=== PATIENT | male | born 1975 | race Caucasian/White ===

== ENCOUNTER → 2023-06-08 10:23 | Outpatient (CLI) | payer OTHER, SELFPAY ==
--- NOTE | 2023-06-08 10:39 | ECG_ITS ---
APPROVED REPORT Exam: Resting ECG HR:84 bpm ECG Measurements Heart Rate 84 AXES WI 161 P 40 QRSd 102 QRS 26 QT 350 T 83 QTc 392 Conclusion SINUS RHYTHM NONSPECIFIC ST & T-WAVE ABNORMALITY BORDERLINE ECG UNCONFIRMED REPORT Electronically signed by : Ochoa Ribeiro MD 06/08/2023 17:32:51
--- NOTE | 2023-06-08 10:48 | XR_ITS ---
FINAL REPORT TECHNIQUE: Chest PA & Lateral CLINICAL HISTORY: pre-op exam for heel cough COMPARISON: None FINDINGS: 2 views of the chest were performed. The heart size is normal. Sternotomy wires are present. There is no acute cardiopulmonary process. There are no pleural effusions. There is no pneumothorax. The bony thorax appears intact. IMPRESSION: No acute cardiopulmonary process. Reviewed, Interpreted and Dictated by Moses Brandt MD Transcribed by Kait Reynoso Authenticated and [facility]
--- NOTE | 2023-06-08 10:48 | XR_ITS ---
FINAL REPORT CLINICAL HISTORY: Left heel pain COMPARISON: None FINDINGS: LEFT FOOT Three views of the left foot demonstrate no acute fracture or dislocation. The visualized joint spaces are normally aligned. 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 The soft tissues are unremarkable. IMPRESSION: No acute bony abnormality. Reviewed, Interpreted and Dictated by Moses Brandt MD Transcribed by Kait Reynoso Authenticated and [facility]
[2023-06-08 11:03] LABS: Basophils % 0.3 % (0.1-2.0); Eosinophils # 0.1 K/mm3 (0.0-0.4); Eosinophils % 0.7 % (0.1-12.0); Hematocrit 48.8 % (42.0-52.0); Hemoglobin 16.7 g/dL (14.1-18.0); Lymphocytes # 1.9 K/mm3 (0.7-4.5); Lymphocytes % 14.2 % (10-50); Mean Corpuscular HGB Conc 34.3 g/dL (31.8-35.4); Mean Corpuscular Hemoglobin 32.4 pg (27.0-31.2); Mean Corpuscular Volume 94.3 fl (80-94); Mean Platelet Volume 8.8 fl (7.4-10.4); Monocytes # 0.6 K/mm3 (0.1-1.0); Monocytes % 4.6 % (1.7-9.3); Neutrophils # 10.5 K/mm3 (1.8-7.8); Neutrophils % 80.2 % (37.0-80.0); Platelet Count 185 K/mm3 (142-424); Red Blood Count 5.17 M/mm3 (4.60-6.20); Red Cell Distribution Width 14.3 % (11.5-17.5); White Blood Count 13.1 K/mm3 (4.8-10.8)
[2023-06-08 12:02] LABS: Chloride 104 mmol/L (98-107); Potassium 4.4 mmoL/L (3.5-5.1); Sodium 141 mmol/L (136-145)
[2023-06-08 12:05] LABS: Alanine Aminotransferase 37 U/L (12-78); Albumin Level 4.6 g/dl (3.5-5.0); Albumin/Globulin Ratio 1.6 (1.1-1.8); Alkaline Phosphatase 103 U/L (38-126); Anion Gap 13.4 mEq/L (5-15); Aspartate Amino Transferase 35 U/L (17-59); Bilirubin,Total 0.6 mg/dl (0.2-1.3); Blood Urea Nitrogen 21 mg/dl (9-20); Calcium 8.8 mg/dl (8.4-10.2); Carbon Dioxide 28 mmol/L (22.0-30.0); Estimated Glomerular Filt Rate 71 ml/min (>60); GFR (African American) 86 ML/MIN (>60); Globulin 2.8 g/dL (1.3-3.2); Glucose 96 mg/dl (74-100); Total Protein,Serum 7.4 g/dl (6.3-8.2)
== END ==
PROVIDERS: Visit Provider Podiatrist
DX: Z01.818 Encounter for other preprocedural examination (principal); M79.672 Pain in left foot
CPT/HCPCS: 36415; 71046; 73630; 80053; 85025; 93005

== ENCOUNTER 2023-07-08 07:36 | Day surgery (SDC) | payer OTHER, SELFPAY ==
[2023-07-07 09:15] VITALS: BMI 42.5
[2023-07-08] VITALS (10 sets, daily range): BP systolic 125–154; BP diastolic 54–93; PULSE 74–86; RESP 14–18; TEMP 36.2–36.8; O2SAT 93–97
[2023-07-08] MEDS: LACTATED RINGERS 1000ML 1,000 ML 25 ML IV (08:03)
--- NOTE | 2023-07-08 10:09 | EXP.ANES.I ---
[facility] Anesthesia Record Part I Anesthesia Record I Intake, IV Amount: 1,550 Hydration: Adequate Estimated blood loss (mL): 25 Urine output (mL): 1 Blood Products used (#): none Blood Pressure: 125/69 SaO2: 94 Pulse Rate: 85 Airway Patency: Patent Respiratory Rate: 14 Temperature: 97.6 F Patient is:: Drowsy, Nasal O2 (4L/min to Left NPO), Oral/Nasal airway (#9.0 oral airway w/Left nare 34Fr NPO) and Stable Stable to PACU at:: 10:11
--- NOTE | 2023-07-08 10:39 | EXP.ANES.CKL ---
[facility] Disclaimer: The information contained in this section may have been updated after the patient was seen, as this information can be updated by other users. Medical History Kidney donor Surgical History H/O knee surgery History of open heart surgery Family History Grandmother Cancer Grandfather Cancer Mother Coronary artery disease Father Coronary artery disease Social History Smoking Status: Never smoker alcohol intake: never substance use type: denies use current occupational status: employed Travel in the last 8 weeks: None [facility] Anesthesia Checklist Patient Identification Patient Identification: Arm Band, Family and Verbal (Name & ) Structural Data Admitted From: Home Planned Operative Procedure/s: Left achilles repari w/graft jacket & heel spur resection Consent for Planned Operative Procedure(s) Verified: Yes Verified Documents: Surgical Consent and History and Physical NPO Status Verified Time NPO: 23:00 Chart Verification Results Verified: CBC, BMP, ECG and Chest Xray Additional verifications Patient : No Anesthesia Reactions: No Hx Blood Transfusions: No Blood Transfusion Reaction: No Cardiovascular Assessment Heart Sounds: S1 & S2 Pulse Rhythm: Irregular Peripheral Edema: No Airway Assessment Mallampati Score:: Class II C-Spine Mobility Assessed: Yes (FROM) TMJ Mobility Assessed: Yes Dentition: Good Dentition (Nothing loose per pt.) Neurological Assessment Level of Consciousness: Awake, Alert, Appropriate and Follows Commands Hx Seizures: No Numbness or tingling in extremities: No Anesthesia Plan Anesthesia Risk discussed: Yes Anesthesia Plan: Verified ASA Class: III Anesthesia Type: General
--- NOTE | 2023-07-08 13:04 | EXP.ANES.I ---
[facility] Anesthesia Record Part I Anesthesia Record I Intake, IV Amount: 800 Hydration: Adequate Estimated blood loss (mL): 25 Urine output (mL): 0 Blood Products used (#): none Blood Pressure: 139/55 SaO2: 93 Pulse Rate: 84 Airway Patency: Patent (Left nare #34Fr NPO) Respiratory Rate: 18 Temperature: 98.2 F Patient is:: Awake (Talking), Oral/Nasal airway (Left nare #34Fr NPO) and Stable Stable to PACU at:: 13:00
[2023-07-08] MEDS: MORPHINE 2MG/ML SYRINGE 2 MG IV (13:24)
--- NOTE | 2023-07-08 18:22 | EXP.OP.NOTE ---
Date of procedure: 07/08/23 Pre-op Diagnosis:: Achilles spurring; tendinitis; Jennifer's deformity; taut achilles Left side. Post-op Diagnosis:: Same Procedure performed:: Achilles tendon lengthening with graft placement Apligraf; and resection Achilles spur and Jennifer's deformity Left side. Surgeon:: Og Huggins DPM HEAD CUSTODIAN:: Other Anesthesia: GETA Estimated blood loss (mL): 3 Operative findings:: Expected taut achilles; exuberant spurring and very enlarged Jennifer's Operative note:: Patient was seen in preop holding; discussed condition with patient and family. Decision to proceed with surgery; efffected foot was signed and consent was reviewed. All questions were answered. Patient been wheeled to the operating room on the [facility]. Anesthesia performed general anesthesia and intubated the patient and then the patient was situated in a prone position on the operating room table. A thigh tourniquet was applied. The foot and ankle are scrubbed and prepped in the usual use aseptic manner. Timeout is performed in the room with all present in agreement. An Esmarch bandage used to exsanguinate the patient's foot and ankle and thigh tourniquet was inflated to 300 mmHg. Attention was directed to the posterior aspect of the patient's Achilles and a linear incision is made through the skin all the way to the very enlarged Achilles spur and Jennifer's level. Dissection was then carried down through subcutaneous tissues at the deep fascia and the Achilles tendon was exposed. At this point dissected the Achilles tendon freed from the very large exostosis it from that and identifying also very prominent Jennifer's deformity. Using sagittal bone saw the exuberant spurring and Jennifer's deformity were resected and remodeled with bone saw and rongeurs. At this point a Z-type tenotomy was performed on the Achilles tendon, to promote its lengthening, extending the tendon in length by 1.5cm; secured with 2-0 suture. After this was done, I prepped the calcaneus with 4 [place] tendon anchors. Tied down the Achilles and was well secured onto the posterior calcaneus. Application of Graft jacket: A 2 x 2 graft jacket was then wrapped around the Achilles tendon at the Z-lengthening site and pad over the Achilles with 0 Vicryl and 2-0 Vicryl. The entire Achilles surgical lengthening section was completely enclosed with the graft, from proximal to the intact tendon/lower muscle level, to the distal tendon anchored to the calcaneus. Utilizing 2-0 and 3-0 Vicryl the peritenon and deep fascia was approximated in a running fashion. The area was rinsed with copious amounts of sterile normal saline. 2-0 Vicryl was used to close the peritenon and deeper fascial structures. I also then used 3-0 Vicryl for subcutaneous closure. Suture closed the skin in layers with the 3-0 Vicryl and then the skin with 3-0 nylon in a combination of running suture as well as mattress suture technique. I dressed the surgical incision site with Xeroform gauze and well-padded with 4 x 4's and Jannet. I then applied a stockinette and well-padded with layers of soft roll or cast padding. Then applied a 4 inch wide posterior splint of Ortho-Glass. Secured this with an outer elastic bandage. Tourniquet was released from the thigh up to for prompt hyperemic response noted to all digits of the right foot. The patient was then positioned onto the gurney and extubated by anesthesia. He was then transferred to recovery with vital signs stable vascular status intact to his right foot. He will then be discharged to home per anesthesia criteria later this morning. Discussed the procedure with his after the surgery; and sent the patient home with Valium, Percocet, and Phenergan. Has a scheduled post operative appointment with me in one week at the office. Call if any problems arise sooner; or report to nearest ER. Use rolling knee scooter; and stay non weight bearing right side for upwards of 8 weeks; to be evaluated regularly in post operative course. Tourniquet time (min): 75 Condition: stable Disposition: PACU Complications:: negative
--- NOTE | 2023-07-09 11:40 | EXP.ANES.II ---
[facility] Anesthesia Record Part II Anesthesia Record Part II Discharge Time: 13:25 Destination: Surgical Day Care (OP Surgery) PACU nurse assessment reviewed?: Yes Patient Condition:: Good Anesthesia Complications:: None Swallowing reflex intact?: Yes Airway Patency: Patent Cyanosis?: No Blood Pressure: 154/93 SaO2: 97 Respiratory Rate: 18 Pulse Rate: 86 Temperature: 97.2 F Mental Status: Alert & Oriented Pain level:: 0 Nausea and/or vomitting:: None Intake, IV Amount: 0 Hydration: Adequate
[2023-07-09 11:41] VITALS: BP 154/93; PULSE 86; RESP 18; TEMP 36.2; O2SAT 97
== END 2023-07-08 14:00 | disposition home or self-care (01) ==
PROVIDERS: Visit Provider Podiatrist
PROC: (CPT 27652; principal; 2023-07-08 09:15)
DX: M77.32 Calcaneal spur, left foot (principal); M76.62 Achilles tendinitis, left leg; M79.672 Pain in left foot; M24.572 Contracture, left ankle
CPT/HCPCS: 27652; 28118; C1713; J2405; Q4107

== ENCOUNTER 2023-08-26 06:05 | Day surgery (SDC) | payer OTHER, SELFPAY ==
[2023-08-26] VITALS (11 sets, daily range): BP systolic 127–170; BP diastolic 71–104; PULSE 85–93; RESP 12–18; TEMP 36.1–43; O2SAT 92–96; BMI 42.5
[2023-08-26] MEDS: LACTATED RINGERS 1000ML 1,000 ML 100 ML IV (06:21)
[2023-08-26 07:06] LABS: Basophils # 0.1 K/mm3 (0-0.2); Basophils % 0.7 % (0.1-2.0); Eosinophils # 0.2 K/mm3 (0.0-0.4); Eosinophils % 1.1 % (0.1-12.0); Hematocrit 49.2 % (42.0-52.0); Hemoglobin 16.4 g/dL (14.1-18.0); Lymphocytes # 2.4 K/mm3 (0.7-4.5); Lymphocytes % 18.8 % (10-50); Mean Corpuscular HGB Conc 33.3 g/dL (31.8-35.4); Mean Corpuscular Hemoglobin 31.8 pg (27.0-31.2); Mean Corpuscular Volume 95.4 fl (80-94); Mean Platelet Volume 9.2 fl (7.4-10.4); Monocytes # 0.6 K/mm3 (0.1-1.0); Monocytes % 4.3 % (1.7-9.3); Neutrophils # 9.8 K/mm3 (1.8-7.8); Neutrophils % 75.1 % (37.0-80.0); Platelet Count 214 K/mm3 (142-424); Red Blood Count 5.16 M/mm3 (4.60-6.20); Red Cell Distribution Width 14.6 % (11.5-17.5)
[2023-08-26 07:17] LABS: Anion Gap 12.5 mEq/L (5-15); Blood Urea Nitrogen 16 mg/dl (9-20); Carbon Dioxide 27 mmol/L (22.0-30.0); Chloride 102 mmol/L (98-107); Creatinine Clearance Estimated 86 mL/min (50-200); Estimated Glomerular Filt Rate 79 ml/min (>60); GFR (African American) 96 ML/MIN (>60); Glucose 124 mg/dl (74-100); Potassium 3.5 mmoL/L (3.5-5.1); Sodium 138 mmol/L (136-145)
[2023-08-26] MEDS: AMPICILLIN SODIUM/SULBACTAM 3 GM in 0.9 % SODIUM CHLORIDE 100 ML IV (07:29)
[2023-08-26] MEDS: GENTAMICIN 80 MG/2 ML VIAL (08:06)
--- NOTE | 2023-08-26 08:08 | P.PNANES_ITS ---
[facility] Disclaimer: The information contained in this section may have been updated after the patient was seen, as this information can be updated by other users. Medical History Kidney donor Surgical History H/O knee surgery History of open heart surgery Family History Grandmother Cancer Grandfather Cancer Mother Coronary artery disease Father Coronary artery disease Social History Smoking Status: Never smoker alcohol intake: current substance use type: denies use current occupational status: employed Travel in the last 8 weeks: None [facility] Anesthesia Checklist Patient Identification Patient Identification: Verbal (Name & ) Structural Data Admitted From: Home Planned Operative Procedure/s: excision skin graft w wound vac Consent for Planned Operative Procedure(s) Verified: Yes NPO Status Verified Time NPO: 00:00 Additional verifications Anesthesia Reactions: No Hx Blood Transfusions: No Blood Transfusion Reaction: No Airway Assessment Mallampati Score:: Class IV C-Spine Mobility Assessed: Yes TMJ Mobility Assessed: Yes Dentition: Poor Dentition Neurological Assessment Level of Consciousness: Awake, Alert and Appropriate Anesthesia Plan Anesthesia Risk discussed: Yes Anesthesia Plan: Verified ASA Class: III Anesthesia Type: General w/block Preoperative Comments Pre-Operative Comments: pop block exp to pt incll risks pt agrees to proceed
[2023-08-26] MEDS: VANCOMYCIN 1000MG VIAL 1000 MG (08:34)
--- NOTE | 2023-08-26 09:16 | EXP.ANES.I ---
[facility] Anesthesia Record Part I Anesthesia Record I Intake, IV Amount: 1,500 Hydration: Adequate Estimated blood loss (mL): 0 Urine output (mL): 0 Blood Pressure: 170/104 SaO2: 92 Pulse Rate: 93 Airway Patency: Patent Respiratory Rate: 12 Temperature: 97.5 F Patient is:: Awake and Stable Stable to PACU at:: 09:15
--- NOTE | 2023-08-26 09:31 | EXP.OP.NOTE ---
Date of procedure: 08/26/23 Pre-op Diagnosis:: Achilles wound dehiscence; graft rejection Post-op Diagnosis:: Same Procedure performed:: Achilles wound debridement with cultures and specimens for pathology; removed necrotic tissue and graft; Gentamicin flush irrigation pulse lavage; repaired achilles tendon with surgery and 0 silk; Vancomycin beads; applied negative wound system. Dressed with gauze, Kerlix, outer elastic bandage. Surgeon:: Og Huggins DPM ORDNANCE ARTIFICER:: Morgan Lawler Anesthesia: GETA Estimated blood loss (mL): 5 Operative findings:: necrotic graft left achilles wound. Operative note:: Patient seen in the preop holding area. Discussed with the patient the planned procedure(s). Reviewed Consent; and confirmed the plan of care with the patient. Opportunity was provided to ask questions and concerns. They understand that another surgery may also be necessary, based on his healing. Signed the surgical site with marking pen. Patient was wheeled to the operating room per staff and anesthesia. Anesthesia blocked the patient/began anesthesia on patient. Foot and lower leg was scrubbed, prepped, and draped today. [place] bandage used to exsanguinate foot, ankle, lower leg; and secured midcalf. Attention directed to the Achilles wound. Ellipsed the edges of the wound from the most proximal level of prior incision to distal heel incision. Scalpel, scissors, currette used to excise necrotic tendon edges, failed graft, and all necrotic tissue in deep wound bed. Sent for pathology and cultures. Achilles had fibers connected from entire length of tendon, about 20% of original tendon attachment. The surgical lengthened Achilles site was then debrided at both ends. Gentamicin was added to saline for pulse lavage. *Clean wound was noted; Achilles was then biopsied for culture deep tissues. Re-anastomosed the Achilles tendon with 0.0 Silk and noted to be secure. Vancomycin beads (Synchris) were implanted around the Achilles tendon. Reapproximated the deeper subcutaneous tissues with 2-0 Prolene; and skin reapproximated with 2-0 nylon. Wound edges were not fully reduced; and linear wound remains measuring length of incision 10cm x width 8mm x depth through tendon structures of 4cm. Released the esmarck touniquet. Applied Negative wound system to the Achilles wound; and suction was secure and working continuous pulse. Applied gauze, Kerlix, outer elastic bandage. Patient has appointment for Tuesday and in my office. Call if any questions or concerns; family and patient have my cell number. Tourniquet time (min): 0 Condition: stable Disposition: PACU Complications:: negative
--- NOTE | 2023-08-26 10:15 | SUR.PHASEII ---
1015 - Pt already has a rolling knee scooter and polar pack from prev surgery.
--- NOTE | 2023-08-26 14:28 | EXP.ANES.II ---
[facility] Anesthesia Record Part II Anesthesia Record Part II Discharge Time: 09:45 Destination: Surgical Day Care (OP Surgery) PACU nurse assessment reviewed?: Yes Patient Condition:: Good Anesthesia Complications:: None Swallowing reflex intact?: Yes Airway Patency: Patent Cyanosis?: No Blood Pressure: 140/90 SaO2: 94 Respiratory Rate: 15 Pulse Rate: 87 Temperature: 98.4 F Mental Status: Alert & Oriented Pain level:: 0 Nausea and/or vomitting:: None Intake, IV Amount: 0 Hydration: Adequate
== END 2023-08-26 10:15 | disposition home or self-care (01) ==
PROVIDERS: Visit Provider Podiatrist
PROC: (CPT 11043; principal; 2023-08-26 07:30)
DX: T85.613A Breakdown (mechanical) of artificial skin graft and decellularized allodermis, initial encounter (principal); T81.31XA Disruption of external operation (surgical) wound, not elsewhere classified, initial encounter
CPT/HCPCS: 11043; 11046; 80048; 85025; 87070; 87205; 96374; C1713; J2405; J3370

== ENCOUNTER 2023-10-06 18:00 | Outpatient (CLI) | payer OTHER, SELFPAY | END 2023-10-06 23:59 | LOC: LAB.DROPOF 10-07 08:52 | PROVIDERS: PCP Podiatrist; Visit Provider Podiatrist | DX: M25.572 Pain in left ankle and joints of left foot (principal); S91.002A Unspecified open wound, left ankle, initial encounter; B96.5 Pseudomonas (aeruginosa) (mallei) (pseudomallei) as the cause of diseases classified elsewhere | CPT/HCPCS: 87070; 87205 ==

== ENCOUNTER 2023-10-20 15:33 | Outpatient (CLI) | payer OTHER, SELFPAY ==
--- NOTE | 2023-10-20 15:34 | ECG_ITS ---
APPROVED REPORT Exam: Resting ECG HR:93 bpm ECG Measurements Heart Rate 93 AXES TN 155 P 29 QRSd 94 QRS -4 QT 332 T 123 QTc 383 Conclusion SINUS RHYTHM POSSIBLE LEFT ATRIAL ENLARGEMENT [-0.1mV P-WAVE IN V1/V2] ST DEVIATION AND MODERATE T-WAVE ABNORMALITY, with no changes from 2022 tracing ABNORMAL ECG UNCONFIRMED REPORT Electronically signed by : Ochoa Ribeiro MD 10/21/2023 15:53:38
--- NOTE | 2023-10-20 15:48 | XR_ITS ---
PROCEDURE INFORMATION: Exam: XR Left Ankle Exam date and time: 10/20/2023 4:08 PM Age: 48 years old Clinical indication: Other: Post retrocalc exostectomy TECHNIQUE: Imaging protocol: Radiologic exam of the left ankle. Views: 3 or more views. COMPARISON: CR XR FOOT WT BEARING LT 3V 06/08/2023 11:03 AM FINDINGS: Bones/joints: Recent surgery with resection of a portion of the posterosuperior calcaneal tuberosity. Patchy osteopenia compatible with disuse. Soft tissues: Normal. IMPRESSION: Postop left ankle.
--- NOTE | 2023-10-20 15:48 | XR_ITS ---
PROCEDURE INFORMATION: Exam: XR Chest Exam date and time: 10/20/2023 4:08 PM Age: 48 years old Clinical indication: Pre-operative exam; Cardiovascular screening and respiratory screening exam; Additional info: Preop testing TECHNIQUE: Imaging protocol: Radiologic exam of the chest. Views: 2 views. COMPARISON: CR XR CHEST 2V 06/08/2023 11:03 AM FINDINGS: Lungs: Unremarkable. No consolidation. Pleural spaces: Unremarkable. No pleural effusion. No pneumothorax. Heart/Mediastinum: Post open heart changes. Bones/joints: Unremarkable. IMPRESSION: Stable chest x-ray with no acute disease.
[2023-10-20 16:00] LABS: Basophils # 0.1 K/mm3 (0-0.2); Basophils % 0.7 % (0.1-2.0); Eosinophils # 0.2 K/mm3 (0.0-0.4); Eosinophils % 1.2 % (0.1-12.0); Hemoglobin 17.4 g/dL (14.1-18.0); Lymphocytes # 2.3 K/mm3 (0.7-4.5); Mean Corpuscular Hemoglobin 32.3 pg (27.0-31.2); Mean Platelet Volume 8.6 fl (7.4-10.4); Monocytes # 0.8 K/mm3 (0.1-1.0); Neutrophils # 9.3 K/mm3 (1.8-7.8); Neutrophils % 74.1 % (37.0-80.0); Platelet Count 218 K/mm3 (142-424); Red Blood Count 5.37 M/mm3 (4.60-6.20); Red Cell Distribution Width 15.1 % (11.5-17.5); White Blood Count 12.5 K/mm3 (4.8-10.8)
[2023-10-20 16:09] LABS: Hemoglobin A1C 5.3 % (4.0-6.0)
[2023-10-20 16:32] LABS: Erythrocyte Sedimentation Rate 5 mm/hr (0-15)
[2023-10-20 16:59] LABS: Alanine Aminotransferase 34 U/L (12-78); Albumin Level 4.6 g/dl (3.5-5.0); Albumin/Globulin Ratio 1.6 (1.1-1.8); Alkaline Phosphatase 99 U/L (38-126); Anion Gap 13.3 mEq/L (5-15); Aspartate Amino Transferase 30 U/L (17-59); Bilirubin,Total 0.8 mg/dl (0.2-1.3); Blood Urea Nitrogen 18 mg/dl (9-20); Calcium 9.6 mg/dl (8.4-10.2); Carbon Dioxide 27 mmol/L (22.0-30.0); Chloride 105 mmol/L (98-107); Estimated Glomerular Filt Rate 71 ml/min (>60); GFR (African American) 86 ML/MIN (>60); Globulin 2.9 g/dL (1.3-3.2); Glucose 114 mg/dl (74-100); Potassium 4.3 mmoL/L (3.5-5.1); Sodium 141 mmol/L (136-145); Total Protein,Serum 7.5 g/dl (6.3-8.2)
[2023-10-20 17:05] LABS: C-Reactive Protein 10.3 mg/L (0-4)
[2023-10-31 15:31] LABS: 1,25 Dihydroxy Vitamin D 19 pg/mL (.); 1,25-Dihydroxy, Vitamin D-2 <10 pg/mL (.); 1,25-Dihydroxy, Vitamin D-3 19 pg/mL (.)
== END 2023-10-20 23:59 | disposition home or self-care (01) ==
LOC: LAB 15:34
PROVIDERS: Visit Provider Podiatrist
DX: Z01.818 Encounter for other preprocedural examination (principal); M25.572 Pain in left ankle and joints of left foot; G89.29 Other chronic pain; M77.32 Calcaneal spur, left foot; S91.002S Unspecified open wound, left ankle, sequela; S96.90 Unspecified injury of unspecified muscle and tendon at ankle and foot level; T81.31XS Disruption of external operation (surgical) wound, not elsewhere classified, sequela
CPT/HCPCS: 36415; 71046; 73610; 80053; 82652; 83036; 85025; 85651; 86140; 87070; 87205; 93005

== ENCOUNTER 2023-10-28 07:24 | Outpatient (CLI) | payer OTHER, SELFPAY ==
--- NOTE | 2023-10-28 07:25 | MR_ITS ---
FINAL REPORT TECHNIQUE: Multiplanar MRI with and without contrast evaluating the left lower leg. CLINICAL HISTORY: Eval Achilles viability, partial tear, infection. ANKLE SURGERY JUN AND AUGUST. WOUND WILL NOT HEAL. COMPARISON: None FINDINGS: MRI LEFT LOWER LEG WITH AND WITHOUT CONTRAST: Multiplanar MR imaging was performed with and without intravenous contrast through the left lower leg in this patient with a clinical history of 2 ankle surgeries and a nonhealing wound. There is a large open wound extending into the distal Achilles tendon. Only thin remaining fibers present in the distal Achilles tendon are intact. This patient is considered to be at extremely high risk for a complete tear. There is enhancing tissue in the open wound, that may represent cellulitis or granulation tissue. No obvious abscess is visualized. There is increased T2 weighted signal in the medial and lateral gastrocnemius muscles, that may represent an infectious myositis. No evidence of abscess or osteomyelitis is identified. IMPRESSION: There is absence of the vast majority of the Achilles tendon fibers, with only a small remnant of the tendon intact. This places the patient at high risk for a complete rupture. Enhancing tissue in the open wound that may represent cellulitis or granulation tissue without evidence of focal abscess. Reviewed, Interpreted and Dictated by Cindy Schilling MD Transcribed by Bree Valadez Authenticated and [facility]
[2023-10-28] MEDS: GADOTERIDOL INJ 17ML SYRINGE 26 ML IV (09:35)
[2023-10-28] MEDS: SODIUM CHLORIDE 0.9% 10ML SYR (RAD ONLY) 10 ML IV (09:35)
== END 2023-10-28 23:59 | disposition home or self-care (01) ==
LOC: RAD 07:25
PROVIDERS: Visit Provider Podiatrist
DX: M25.572 Pain in left ankle and joints of left foot (principal); S91.002S Unspecified open wound, left ankle, sequela; S96.90 Unspecified injury of unspecified muscle and tendon at ankle and foot level; T81.31XS Disruption of external operation (surgical) wound, not elsewhere classified, sequela; Z22.39 Carrier of other specified bacterial diseases
CPT/HCPCS: 73720; A9576

== ENCOUNTER 2023-11-03 09:52 | Outpatient (CLI) | payer OTHER, SELFPAY ==
--- NOTE | 2023-11-03 09:56 | CA_ITS ---
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 251.0 (50-130 cm/s) AO Peak GR. 25.40 mmHg AO Mean GR. 13.80 (<5 mmHg) AO VTI 34.9 (18-25 cm) WOLFGANG (VTI) 2.07 (2.5-4.5 cm2) Mitral Valve MV E Max Justin. 59.0 (40-130 cm/s) MV A Velocity 77.0 (40-130 cm/s) E/A Ratio 0.76 MV PHT 52.0 ms Pulmonary Valve PV Peak Velocity 161.0 (50-150 cm/s) Tricuspid Valve TR P. Velocity 258.00 cm/s RAP Estimate 10.00 mmHg RVSP 36.60 mmHg Left Ventricle The left ventricle is normal size. The left ventricular systolic function is normal. The left ventricular ejection fraction is within the normal range. There is increased LV wall thickness. Proximal septal thickening is noted. There is normal LV segmental wall motion. The left ventricular diastolic function is normal. LVEF is 55%. Right Ventricle The right ventricle is normal size. The right ventricular systolic function is normal. Atria The left atrium size is normal. The right atrium size is normal. There is no Doppler evidence of interatrial shunt. Aortic Valve s/p subaortic membrane repair (1985). The aortic valve is mildly thickened. The excursion of the aortic valve leaflets not well-visualized due to technically difficult study. Peak velocity 2.7 m/s. Mean AV gradient 20 mmHg. Max AV gradient 28 mmHg. Distinction between mild AV stenosis versus recurrence of subaortic membrane cannot be conclusively made due to technically difficult study. Mild aortic regurgitation. Mitral Valve The mitral valve is normal in structure. No evidence of mitral valve stenosis. Mild mitral regurgitation. Tricuspid Valve The tricuspid valve leaflets are thin and pliable. Trace tricuspid regurgitation. There is insufficient TR jet to estimate RVSP. Pulmonic Valve The pulmonary valve is normal in structure. Trace pulmonic regurgitation. Great Vessels The aortic root is normal in size. The ascending aorta is not well-visualized. IVC is normal in size and collapses >50% with inspiration. Pericardium There is no pericardial effusion. Other Information Study Quality: Technically Difficult Conclusion Technically difficult study due to poor acoustic windows. Normal biventricular systolic function. Mild MR, mild AI. s/p subaortic membrane repair (1985). The aortic valve leaflet excursion is not well-visualized due to technically difficult study. Peak velocity 2.7 m/s. Mean AV gradient 20 mmHg. Max AV gradient 28 mmHg. In the setting of technically difficult study and elevated AV gradients with inability to visualize the AV leaflets, further evaluation with outpatient cardiac MRI (aortic valve protocol) is recommended to evaluate for recurrence of subaortic membrane. Electronically signed by : Cheli Berg MD 11/06/2023 00:56:50
== END 2023-11-03 23:59 | disposition home or self-care (01) ==
LOC: RT 09:56
PROVIDERS: Visit Provider Nurse Practitioner Family
DX: R94.31 Abnormal electrocardiogram [ECG] [EKG] (principal); Z01.810 Encounter for preprocedural cardiovascular examination; Z98.890 Other specified postprocedural states; Z86.79 Personal history of other diseases of the circulatory system; S91.002S Unspecified open wound, left ankle, sequela; S96.90 Unspecified injury of unspecified muscle and tendon at ankle and foot level
CPT/HCPCS: 93306

== ENCOUNTER 2023-11-09 08:18 | Inpatient (IN) | payer OTHER, SELFPAY ==
[2023-11-08 13:42] VITALS: BMI 42.5
[2023-11-09] VITALS (19 sets, daily range): BP systolic 115–167; BP diastolic 49–94; PULSE 81–95; RESP 16–20; TEMP 36.1–37.3; O2SAT 94–98; BMI 42.5
[2023-11-09] MEDS: LACTATED RINGERS 1000ML 1,000 ML 100 ML IV (07:54)
--- NOTE | 2023-11-09 08:56 | P.HPDS_ITS ---
General Admission date:: 11/09/23 *Admission Date: 11/09/23 *Chief complaint: Left achilles tendon tear *History of present illness: Patient is a 48-year-old obese male who presented for open wound of the left posterior ankle with exposed Achilles tendon. 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 Patient tried and failed conservative care prior to surgery. Since his surgery he has been immobilized in a fracture boot, nonweightbearing with a rolling knee scooter, RICE protocol, NSAIDs. Patient has also been having weekly wound debridements with wound VAC changes with Dr. Huggins. Due to the extensive nature of the wound and the complexity of the potential weakness of the Achilles tendon strength, patient was referred for second opinion for evaluation and surgical management. Patient underwent left revisional achilles surgery today. Plan for 23hrs observation for pain mgmt and medical mgmt due to abnormal EKG-overnight cardiac monitoring. [facility] Disclaimer: The information contained in this section may have been updated after the patient was seen, as this information can be updated by other users. Medical History Kidney donor Surgical History H/O knee surgery History of open heart surgery Family History Father Grandfather Grandmother Coronary artery disease Mother Father Cancer Grandmother Grandfather Social History Smoking Status: Never smoker alcohol intake: never substance use type: denies use current occupational status: employed Travel in the last 8 weeks: None Review of Systems Review of Systems Review of systems:: pertinent systems reviewed and negative unless documented below Constitutional Constitutional: Reports system reviewed and no additional complaints, except as documented and Reports weakness (LLE) Eyes Eyes: Reports system reviewed and no additional complaints, except as documented ENT Ears, Nose, Mouth, and Throat: Reports system reviewed and no additional complaints, except as documented *Cardiovascular Cardiovascular: Reports system reviewed and no additional complaints, except as documented *Respiratory Respiratory: Reports system reviewed and no additional complaints, except as documented *Gastrointestinal Gastrointestinal: Reports system reviewed and no additional complaints, except as documented *Genitourinary Genitourinary: Reports system reviewed and no additional complaints, except as documented *Musculoskeletal Musculoskeletal: Reports system reviewed and no additional complaints, except as documented, Reports joint swelling, Reports muscle weakness (LLE) and Reports radiating pain into limb Integumentary/Breasts Skin/Breast: Reports system reviewed and no additional complaints, except as documented *Neurologic Neurologic: Reports system reviewed and no additional complaints, except as documented and Reports weakness (LLE) Psychiatric Psychiatric: Reports system reviewed and no additional complaints, except as documented Exam Data for Last 24 hours Vital signs and Labs for Last 24 Hours: Temp Pulse Resp BP Pulse Ox O2 Del Method 97 F L 86 18 167/94 H 94 L Room Air 11/09/23 07:56 11/09/23 07:56 11/09/23 07:56 11/09/23 07:56 11/09/23 07:56 11/09/23 07:56 I & O for Last 24 hours: Intake & Output 11/06/23 11/07/23 11/08/23 11/09/23 11:59 11:59 11:59 11:59 Weight 280 lb Constitutional Constitutional: no acute distress and morbidly obese *Routine HEENT Exam Head: Present normocephalic Eye: Present EOMI ENT: Present mucous membranes moist *Routine Neck Exam Neck: Present supple *Routine Respiratory Exam Respiratory: Present normal respiratory effort and able to speak in complete sentences *Routine Cardiovascular Exam Cardiovascular: Present RRR *Routine Abdominal Exam Abdominal: Present soft *Routine Rectal Exam Rectal:: deferred *Routine Genitalia Exam Genitalia:: deferred *Routine Extremities Exam Extremities: Present edema and pulses intact *Routine Skin Exam Skin: Present intact Comments: Sutures are clean dry and intact to the posterior left ankle/leg. Some maceration to the distal incision secondary to bleeding. Graft intact to the distal wound with sutures in place. No new SOI noted. *Routine Neurological Exam Neurological: Present alert and oriented X3 Routine Psychiatric Exam Psychiatric: Present normal affect Detailed Lower Extremity Exam Hip: left: swelling, left: tenderness (posterior leg, achilles) and left: decreased ROM Meds Home Medications and Allergies Home Medications Medication Instructions Recorded Confirmed Type cyclobenzaprine 5 mg tablet 5 mg PO BID PRN muscle spasm #30 11/09/23 Rx tabs ibuprofen 800 mg tablet 800 mg PO Q8H PRN pain 30 days #90 11/09/23 Rx tabs ketorolac 10 mg tablet 10 mg PO Q6H PRN moderate pain 11/09/23 Rx (scale score 5-6) 5 days #20 tabs levofloxacin 750 mg tablet 750 mg PO DAILY 10 days #10 tabs 11/09/23 Rx ondansetron HCl 4 mg tablet 4 mg PO Q6H PRN nausea #30 tabs 11/09/23 Rx oxycodone-acetaminophen 10 mg-325 1 tab PO Q4-6H PRN severe pain 11/09/23 Rx mg tablet (scale score 7-10) 7 days #42 tabs cholecalciferol (vitamin D3) 1,250 1,250 mcg PO WEEKLY #14 caps 11/10/23 Rx mcg (50,000 unit) capsule gabapentin 300 mg capsule 300 mg PO TID PRN nerve pain 10 11/10/23 Rx days #30 caps New Prescriptions to Start Prescriptions: Allergies Allergy/AdvReac Type Severity Reaction Status Date / Time Sulfa (Sulfonamide AdvReac Intermediate Unknown Verified 11/09/23 07:52 Antibiotics) allergy reaction influenza virus vaccine AdvReac Unknown Verified 11/09/23 07:52 trivalent allergy reaction Hospital Course Hospital Course Hospital Course: Patient admitted for 23hr observation s/p left achilles reconstruction. Had previously uneventful postop course. No issues overnight. Had elevated WBC on labs likely post surgical with possible early atelectasis. Has incentive spirometer at home. DOS: Surgery, 11/09/23: s/p left achilles reconstruction, hardware removal -IV 1g Cefepime, 1g Vanco given -Hx of 10/06/23, left ankle WCx (+) Pseudomonas and staph epi (Resist to Clinda) 11/10/23, POD: #1 -Patient seen and evaluated at bedside by myself with [employer]. -Patient is to maintain dressing clean dry and intact. -Ice behind the left knee and elevate on two pillows. -Has polar pack at home. -Non weight bearing to the left lower extremity with DME assistance (walker, rolling knee scooter). -Continue incentive spirometer q1h. -Rx for Percocet 10/325 and Flexeril given. e-Rx given for oral Levo 750mg, Zofran, Ketorolac and Motrin 800mg,Vit. D 50,000 IU once weekly. (Clinic Pharmacy meds to bed). -Dressing changed, site cleaned with betadine swabs. New xeroform, betadine soaked gauze, dry sterile gauze, kerlix, soft roll, zhen and splint applied. -We did not need to apply a wound vac at this time. -PT today for gait training (discussed with [place]). -Plan for d/c home at some point today after PT. . -Plan to see patient in the office 11/15/23 @1015 for dressing change. DS: Diagnosis Discharge Diagnosis (1) Status post Achilles tendon repair: Status: Acute Code(s): Z98.890 - Other specified postprocedural states (2) Postoperative pain: Status: Acute Code(s): G89.18 - Other acute postprocedural pain (3) Vitamin D deficiency: Status: Acute Code(s): E55.9 - Vitamin D deficiency, unspecified (4) Morbid obesity: Status: Acute Code(s): E66.01 - Morbid (severe) obesity due to excess calories Discharge Plan Disposition Patient Disposition: Home, Self-Care Condition: Good Follow up Plan Follow up with: Provider,Referral, [Primary Care Provider] - 1 week Estefania Murguia DPM [Staff Physician] - 1 week Prescriptions/Medication Reconciliation: Continued oxycodone-acetaminophen 10-325 mg tablet 1 tab PO Q4-6H PRN (Reason: severe pain (scale score 7-10)) 7 Days Qty: 42 0RF cyclobenzaprine 5 mg tablet 5 mg PO BID PRN (Reason: muscle spasm) Qty: 30 0RF ibuprofen 800 mg tablet 800 mg PO Q8H PRN (Reason: pain) 30 Days Qty: 90 2RF ketorolac 10 mg tablet 10 mg PO Q6H PRN (Reason: moderate pain (scale score 5-6)) 5 Days Qty: 20 0RF Rx Instructions: maximum total duration of 5 days from all oral, intranasal, or parenteral formulations levofloxacin 750 mg tablet 750 mg PO DAILY 10 Days Qty: 10 0RF ondansetron HCl 4 mg tablet 4 mg PO Q6H PRN (Reason: nausea) Qty: 30 2RF gabapentin 300 mg capsule 300 mg PO TID PRN (Reason: nerve pain) 10 Days Qty: 30 2RF cholecalciferol (vitamin D3) 1,250 mcg (50,000 unit) capsule 1,250 mcg PO WEEKLY Qty: 14 3RF Problem Reconciliation Problems Reviewed?: Yes Patient Discharge Instructions ACTIVITY: Continue current activity and Limited activity DIET: advance to your usual diet and regular diet Additional Instructions: Patient is to maintain dressing clean dry and intact. Ice (resume home polar pack) behind the left knee and elevate on two pillows. Non weight bearing to the left lower extremity with DME assistance (rolling knee scooter). Continue incentive spirometer q1h. Rx for Percocet 10/325, gabapentin, ketorolac, Levo, Zofran and Motrin 800mg. Vit D weekly. Follow up 11/15/23 @[address] Murguia for dressing change. Patient Instructions: Arthrodesis of Foot and Ankle -- Open Surgery, DI for Surgical Site Infection Providers Primary Care Provider: Provider,Referral Admit Provider: Kevan Burgess Attending Provider: Federico Pearce
--- NOTE | 2023-11-09 09:28 | EXP.ANES.CKL ---
[facility] Disclaimer: The information contained in this section may have been updated after the patient was seen, as this information can be updated by other users. Medical History Kidney donor Surgical History H/O knee surgery History of open heart surgery Family History Father Grandfather Grandmother Coronary artery disease Mother Father Cancer Grandmother Grandfather Social History Smoking Status: Never smoker alcohol intake: never substance use type: denies use current occupational status: employed Travel in the last 8 weeks: None [facility] Anesthesia Checklist Patient Identification Patient Identification: Arm Band Structural Data Admitted From: Home Planned Operative Procedure/s: Left Achilles Tendon Debridement, Wound Debridement Consent for Planned Operative Procedure(s) Verified: Yes Verified Documents: Surgical Consent and History and Physical NPO Status Verified Time NPO: 00:00 Additional verifications Anesthesia Reactions: No Hx Blood Transfusions: No Blood Transfusion Reaction: No Airway Assessment Mallampati Score:: Class II C-Spine Mobility Assessed: Yes TMJ Mobility Assessed: Yes Dentition: Good Dentition Neurological Assessment Level of Consciousness: Awake and Alert Anesthesia Plan Anesthesia Risk discussed: Yes Anesthesia Plan: Verified ASA Class: III Anesthesia Type: General w/block (Left Popliteal/Adductor Canal Nerve Block. Risk/benefits explained. Pt verbalized understanding)
[2023-11-09] MEDS: CEFEPIME HCL 1 GM in 0.9 % SODIUM CHLORIDE 50 ML IV ×2 (10:55→11:00)
[2023-11-09] MEDS: VANCOMYCIN 1000MG VIAL 1000 MG (11:16)
[2023-11-09] MEDS: GENTAMICIN 80 MG/2 ML VIAL ×2 (11:16→12:10)
[2023-11-09] MEDS: VANCOMYCIN HCL 2,500 MG in 0.9 % SODIUM CHLORIDE 250 ML 125 MG IV (12:00)
--- NOTE | 2023-11-09 15:58 | XR_ITS ---
FINAL REPORT CLINICAL HISTORY: post op COMPARISON: 10/20/2023 FINDINGS: Left ankle Three views were obtained. There are postoperative changes of the calcaneal tuberosity. Splint obscures the detail. IMPRESSION: Postoperative changes. Reviewed, Interpreted and Dictated by Reid Browning III, MD Transcribed by Lynda Khoury Authenticated and [facility]
--- NOTE | 2023-11-09 16:03 | EXP.ANES.I ---
[facility] Anesthesia Record Part I Anesthesia Record I Intake, IV Amount: 2,000 Hydration: Adequate Estimated blood loss (mL): 50 Urine output (mL): 0 Blood Products used (#): none Blood Pressure: 118/72 SaO2: 96 Pulse Rate: 82 Airway Patency: Patent Respiratory Rate: 16 Temperature: 99.1 F Patient is:: Drowsy and Stable Stable to PACU at:: 15:55
--- NOTE | 2023-11-09 16:29 | PC.NURSE ---
arrived by bed from surgery
--- NOTE | 2023-11-09 16:49 | P.PNANES_ITS ---
[facility] Anesthesia Record Part II Anesthesia Record Part II Discharge Time: 16:25 Destination: Medical Surgical Department PACU nurse assessment reviewed?: Yes Patient Condition:: Good Anesthesia Complications:: None Swallowing reflex intact?: Yes Airway Patency: Patent Cyanosis?: No Blood Pressure: 136/71 SaO2: 94 Respiratory Rate: 18 Pulse Rate: 81 Temperature: 99.1 F Mental Status: Alert & Oriented Pain level:: 0 Nausea and/or vomitting:: None Intake, IV Amount: 0 Hydration: Adequate
[2023-11-09 17:06] LABS: Basophils # 0.1 K/mm3 (0-0.2); Basophils % 0.5 % (0.1-2.0); Eosinophils # 0.1 K/mm3 (0.0-0.4); Eosinophils % 0.3 % (0.1-12.0); Hematocrit 52.9 % (42.0-52.0); Hemoglobin 17.2 g/dL (14.1-18.0); Lymphocytes # 1.1 K/mm3 (0.7-4.5); Lymphocytes % 5.1 % (10-50); Mean Corpuscular HGB Conc 32.5 g/dL (31.8-35.4); Mean Corpuscular Volume 98.4 fl (80-94); Mean Platelet Volume 8.3 fl (7.4-10.4); Monocytes # 0.6 K/mm3 (0.1-1.0); Monocytes % 2.9 % (1.7-9.3); Neutrophils # 19.1 K/mm3 (1.8-7.8); Neutrophils % 91.2 % (37.0-80.0); Platelet Count 249 K/mm3 (142-424); Red Blood Count 5.37 M/mm3 (4.60-6.20); Red Cell Distribution Width 14.9 % (11.5-17.5); White Blood Count 20.9 K/mm3 (4.8-10.8)
[2023-11-09 17:07] LABS: MANUAL DIFFERENTIAL MANUAL DIFFERENTIAL (MANUAL DIFF)
[2023-11-09 17:09] LABS: Chloride 104 mmol/L (98-107); Potassium 4.8 mmoL/L (3.5-5.1); Sodium 140 mmol/L (136-145)
[2023-11-09 17:12] LABS: Alanine Aminotransferase 44 U/L (12-78); Albumin Level 4.2 g/dl (3.5-5.0); Albumin/Globulin Ratio 1.3 (1.1-1.8); Alkaline Phosphatase 92 U/L (38-126); Anion Gap 14.8 mEq/L (5-15); Aspartate Amino Transferase 45 U/L (17-59); Bilirubin,Total 0.8 mg/dl (0.2-1.3); Blood Urea Nitrogen 14 mg/dl (9-20); Carbon Dioxide 26 mmol/L (22.0-30.0); Creatinine Clearance Estimated 53 mL/min (50-200); Estimated Glomerular Filt Rate 46 ml/min (>60); GFR (African American) 56 ML/MIN (>60); Globulin 3.3 g/dL (1.3-3.2); Total Protein,Serum 7.5 g/dl (6.3-8.2)
[2023-11-09 17:13] LABS: Calcium 9.1 mg/dl (8.4-10.2); Glucose 158 mg/dl (74-100)
[2023-11-09] MEDS: HEPARIN SODIUM 5,000 UNIT/ML VIAL 5000 UNIT SQ (17:13)
[2023-11-09 17:28] LABS: Lymphocytes % 10 % (10-50); Monocytes % 1 % (2-9); Neutrophils % 89 % (42-76); Platelet Estimate Normal; RBC Morphology Normal; Total Cells Counted 100
--- NOTE | 2023-11-09 17:37 | EXP.POD.CONS ---
History of Present Illness *Admission Date: 11/09/23 *Reason for visit:: Left achilles *History of present illness: Patient is a 48-year-old obese male who presented for open wound of the left posterior ankle with exposed Achilles tendon. 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 Patient tried and failed conservative care prior to surgery. Since his surgery he has been immobilized in a fracture boot, nonweightbearing with a rolling knee scooter, RICE protocol, NSAIDs. Patient has also been having weekly wound debridements with wound VAC changes with Dr. Huggins. (He has had two prior surgeries by another provider.) Due to the extensive nature of the wound and the complexity of the potential weakness of the Achilles tendon strength, patient was referred for second opinion for evaluation and surgical management. Patient underwent left revisional achilles surgery today. Plan for 23hrs observation for pain mgmt and medical mgmt due to abnormal EKG-overnight cardiac monitoring. Dr Pearce will admit, Dr Murguia to consult. [facility] Disclaimer: The information contained in this section may have been updated after the patient was seen, as this information can be updated by other users. Medical History Kidney donor Surgical History H/O knee surgery History of open heart surgery Family History Father Grandfather Grandmother Coronary artery disease Mother Father Cancer Grandmother Grandfather Social History Smoking Status: Never smoker alcohol intake: never substance use type: denies use current occupational status: employed Travel in the last 8 weeks: None Review of Systems Review of Systems Review of systems:: pertinent systems reviewed and negative unless documented below Constitutional Constitutional: Reports system reviewed and no additional complaints, except as documented and Reports weakness (LLE) Eyes Eyes: Reports system reviewed and no additional complaints, except as documented ENT Ears, Nose, Mouth, and Throat: Reports system reviewed and no additional complaints, except as documented *Cardiovascular Cardiovascular: Reports system reviewed and no additional complaints, except as documented *Respiratory Respiratory: Reports system reviewed and no additional complaints, except as documented *Gastrointestinal Gastrointestinal: Reports system reviewed and no additional complaints, except as documented *Genitourinary Genitourinary: Reports system reviewed and no additional complaints, except as documented *Musculoskeletal Musculoskeletal: Reports system reviewed and no additional complaints, except as documented, Reports joint swelling, Reports muscle weakness (LLE) and Reports radiating pain into limb Integumentary/Breasts Skin/Breast: Reports system reviewed and no additional complaints, except as documented *Neurologic Neurologic: Reports system reviewed and no additional complaints, except as documented and Reports weakness (LLE) Psychiatric Psychiatric: Reports system reviewed and no additional complaints, except as documented Meds Home Medications and Allergies Home Medications Medication Instructions Recorded Confirmed Type cyclobenzaprine 5 mg tablet 5 mg PO BID PRN muscle spasm #30 11/09/23 Rx tabs ibuprofen 800 mg tablet 800 mg PO Q8H PRN pain 30 days #90 11/09/23 Rx tabs ketorolac 10 mg tablet 10 mg PO Q6H PRN moderate pain 11/09/23 Rx (scale score 5-6) 5 days #20 tabs levofloxacin 750 mg tablet 750 mg PO DAILY 10 days #10 tabs 11/09/23 Rx ondansetron HCl 4 mg tablet 4 mg PO Q6H PRN nausea #30 tabs 11/09/23 Rx oxycodone-acetaminophen 10 mg-325 1 tab PO Q4-6H PRN severe pain 11/09/23 Rx mg tablet (scale score 7-10) 7 days #42 tabs New Prescriptions to Start Prescriptions: Allergies Allergy/AdvReac Type Severity Reaction Status Date / Time Sulfa (Sulfonamide AdvReac Intermediate Unknown Verified 11/09/23 07:52 Antibiotics) allergy reaction influenza virus vaccine AdvReac Unknown Verified 11/09/23 07:52 trivalent allergy reaction Exam (Inpt) Vital signs and Labs for Last 24 Hours: Temp Pulse Resp BP Pulse Ox O2 Del Method 98.6 F 81 18 116/51 L 97 Room Air 11/09/23 16:45 11/09/23 16:45 11/09/23 16:50 11/09/23 16:45 11/09/23 16:45 11/09/23 16:25 Laboratory Results - last 24 hr 11/09/23 16:55: WBC 20.9 H*, RBC 5.37, Hgb 17.2, Hct 52.9 H, MCV 98.4 H, MCH 32.0 H, MCHC 32.5, RDW 14.9, Plt Count 249, MPV 8.3, Neut % (Auto) 91.2 H, Lymph % (Auto) 5.1 L, [place] % (Auto) 2.9, Eos % (Auto) 0.3, Baso % (Auto) 0.5, Neut # (Auto) 19.1 H, Lymph # (Auto) 1.1, [place] # (Auto) 0.6, Eos # (Auto) 0.1, Baso # (Auto) 0.1, Total Counted 100, Neutrophils % (Manual) 89 H, Lymphocytes % (Manual) 10, Monocytes % (Manual) 1 L, Platelet Estimate Normal, RBC Morphology Normal, Sodium 140, Potassium 4.8, Chloride 104, Carbon Dioxide 26, Anion Gap 14.8, BUN 14, Creatinine 1.60 H, Estimated Creat Clear 53, Estimated GFR 46 L, Est GFR ( Amer) 56 L, Glucose 158 H, Calcium 9.1, Total Bilirubin 0.8, AST 45, ALT 44, Alkaline Phosphatase 92, Total Protein 7.5, Albumin 4.2, Globulin 3.3 H, Albumin/Globulin Ratio 1.3 I & O for Labs for Last 24 Hours: Intake & Output 11/07/23 11/08/23 11/09/23 11/10/23 11:59 11:59 11:59 11:59 Intake Total 1999 Balance 1999 Weight 280 lb Constitutional: Present no acute distress and morbidly obese Head: Present normocephalic Neck: Present normal inspection Respiratory: Present able to speak in complete sentences Cardiac: Present posterior tibial pulses present and pedal pulses present GI: Present soft Extremities: Present normal inspection, tenderness, normal capillary refill and edema Comment:: LLE splint and dressing clean dry and intact. No calf or thigh pain b/l. Skin: Present intact Comment:: Sutures to left posterior ankle. Neuro: Present Motor Function Intact, Sensory Function Intact, oriented x 3 and moves all extremities Ankle: bilateral: normal inspection Results Labs 11/09/23 16:55 11/09/23 16:55 Labs: Abnormal lab results 11/09/23 Range/Units 16:55 WBC 20.9 H* (4.8-10.8) K/mm3 Hct 52.9 H (42.0-52.0) % MCV 98.4 H (80-94) fl MCH 32.0 H (27.0-31.2) pg Neut % (Auto) 91.2 H (37.0-80.0) % Lymph % (Auto) 5.1 L (10-50) % Neut # (Auto) 19.1 H (1.8-7.8) K/mm3 Neutrophils % (Manual) 89 H (42-76) % Monocytes % (Manual) 1 L (2-9) % Creatinine 1.60 H (0.66-1.25) mg/dl Estimated GFR 46 L (>60) ml/min Est GFR ( Amer) 56 L (>60) ML/MIN Glucose 158 H (74-100) mg/dl Globulin 3.3 H (1.3-3.2) g/dL H & H 11/09/23 Range/Units 16:55 Hgb 17.2 (14.1-18.0) g/dL Hct 52.9 H (42.0-52.0) % All other labs normal. Assessment and Plan *Assessment and plan (1) Status post Achilles tendon repair: Status: Acute Category: Surgical Code(s): Z98.890 - Other specified postprocedural states (2) Postoperative pain: Status: Acute Category: Medical Code(s): G89.18 - Other acute postprocedural pain (3) Hx of aortic valve repair: Status: Acute Category: Surgical Code(s): Z98.890 - Other specified postprocedural states; Z86.79 - Personal history of other diseases of the circulatory system (4) Abnormal electrocardiogram [ECG] [EKG]: Status: Acute Category: Medical Code(s): R94.31 - Abnormal electrocardiogram [ECG] [EKG] (5) Morbid obesity: Status: Acute Category: Medical Code(s): E66.01 - Morbid (severe) obesity due to excess calories Plan Surgery, 11/09/23: s/p left achilles reconstruction, hardware removal DOS: admit per Dr Pearce, consult Dr Murguia -IV 1g Cefepime, 1g Vanco given -Hx of 10/06/23, left ankle WCx (+) Pseudomonas and staph epi (Resist to Clinda) -Patient is to maintain dressing clean dry and intact. -Ice behind the left knee and elevate on two pillows. -Has polar pack at home. -Non weight bearing to the left lower extremity with DME assistance (walker, rolling knee scooter). -Continue incentive spirometer q1h. -Rx for Percocet 10/325 and Flexeril given. e-Rx given for oral Levo 750mg, Zofran, Ketorolac and Motrin 800mg. (Clinic Pharmacy meds to bed). -Plan for Podiatry dressing change (possible wound vac application at bedside) in am. -PT in am for gait training. -Plan for likely d/c home tomorrow.
--- NOTE | 2023-11-09 17:46 | P.OP_ITS ---
Date of procedure: 11/09/23 Pre-op Diagnosis:: Left achilles tendon tear Left posterior ankle open wound Hx achilles tendonitis Hx Pseudomonas infection Failed left foot surgery Retained orthopedic hardware Post-op Diagnosis:: Same Procedure performed:: Left achilles repair, secondary FHL tendon transfer achilles/gastroc turn-down lengthening flap gastronemius muscle tear repair partial resection calcaneus (revision of retrocalcaneal exostectomy) wound graft application (open ankle wound) achilles debridement, I&D below fascia wound debridement cerament G (application/insertion of drug delivery system to bone) hardware removal application of posterior splint Surgeon:: Estefania Murguia DPM [employer] WELDER:: Kaykay Guo and Woody Feeback Anesthesia: GETA and regional (L regional nerve block) Estimated blood loss (mL): 50 Clinical Note:: Patient is a 48-year-old obese male who presents for open wound of the left posterior ankle with exposed Achilles tendon. 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 Patient tried and failed conservative care prior to surgery. Since his surgery he has been immobilized in a fracture boot, nonweightbearing with a rolling knee scooter, RICE protocol, NSAIDs. Patient has also been having weekly wound debridements with wound VAC changes with Dr. Huggins. Due to the extensive nature of the wound and the complexity of the potential weakness of the Achilles tendon strength, patient was referred for second opinion for evaluation and surgical management. After a long discussion with the patient in regards to the conservative versus surgical treatment for the tendon tear/deformity, the patient has elected to proceed with surgery because they have failed conservative treatment and continue to have pain and minimal improvement to the wound which is affecting daily activities, the ability to walk and the ability to work. Discussed wound debridement with wound VAC application. Discussed the use of a graft jacket but patient previously had that and the graft jacket itself was compromised/infected secondary to the wound dehiscence. Also discussed if the Achilles tendon when debrided if it is very thin, there is a lack of excursion or strength upon muscle testing, patient may also need an FHL tendon transfer. Discussed increased risk of Achilles weakness secondary to need for debridement. Discussed tendon, soft tissue infection/reinfection. Discussed complications of untreated infection including worsening infection, spread of infection, osteomyelitis which could warrant more oral versus IV antibiotics, debridement of soft tissue or bone, possible loss of limb. The patient has been instructed on the planned procedure, all risk versus benefits of the procedure discussed. These include but are not limited to: bleeding, infection, nerve and blood vessel damage, need for further surgery, delay in healing of soft tissue or bone, tendon re-rupture, weakness of the tendon, failure of bones to heal, non-union, mal-union, failure of the implant, prolonged pain and recovery, prolonged/permanent pain or swelling, CRPS/RSD, DVT/PE and anesthetic complications including . No guarantees were given. All questions fully answered. The patient verbalized understanding and agreed to proceed with surgery. Written consent obtained. Operative findings:: Left posterior ankle wound noted. Wound vac removed. Full thickness wound noted over prior surgical incision with exposed achilles tendon. Wound sharply excisionally debrided with a 15 blade, forceps and curette through skin, subcutaneous tissue into/including deep fascia/Achilles tendon. The Achilles tendon was rubbery and shredded with nonviable tendon noted. There were scant achilles fibers noted 2-3 cm proximal to distal attachment, basically achilles was almost completed torn. The entire nonviable section of the tendon was transected full-thickness and sent as specimen to pathology and culture. A section approximately 7 cm was removed. There was a 1 cm piece of the Achilles distally attached into the calcaneus. The distal piece of Achilles was debrided and upon debridement it was shredded and nonviable. The tendon was removed. This left a the large defect totaling 11cm with no distal attachment. Therefore revision of the prior surgery was warranted. Bone anchors x4 to calcaneus were removed. A piece of the calcaneus was resected with saw and sent for path and culture. No purulence, malodor or drainage noted from bone. Modifier: this case took approximately 2 hours longer than a normal Achilles debridement and repair due to the revisional nature of the surgery. There is increased fibrotic scar tissue and proximal subcutaneous tissue due to the patient's body habitus which made the dissection more complex. Due to the large significant Achilles defect and nonviable distal attachment, this warranted the need for hardware removal and reanchoring new Achilles after a proximal Achilles turndown procedure. Tight tissue and complex open closure due to previous surgery, scar tissue, open wound. A more complex revisional reconstructive case. Operative note:: On this date and time patient was deemed an appropriate surgical candidate. Anesthesia performed a pre-op regional popliteal nerve block. With informed consent signed, the patient was taken to the operating theater. The patient was positioned supine. General anesthesia was induced. Tourniquet was applied to the thigh at 300 mmHg. Patient positioned prone and the left lower extremity was prepped and draped in normal sterile fashion. Infused: 1g IV Cefepime and 1g IV Vanco. Left achilles debridement with direct open repair secondary Achilles tendon, I&D fascia: Attention was directed to the posterior leg where a longitudinal i ncision was mapped out above and below prior surgery site and open wound. Dissection was carried down through thick fibrotic scar with care to maintain surgical hemostasis and safely retract neurovascular structures. There was a break in the deep fascia at the level of the Achilles tendon tear site with synovitis noted throughout the tissue. All nonviable pieces and ends of the Achilles were transected. A 2cm long incision was made in deep fascia and no purulence was noted. See op findings for details. Left gastrocnemius tear repair: Incision was lengthened proximally over 15 more centimeters. Hematoma and fibrotic scar tissue noted at the Achilles tear open wound site as well as at the gastrocnemius medial muscle head. There was a 1 cm tear in the medial gastroc. Hematoma was debrided. Wound was flushed with saline. Utilizing FiberWire the gastrocnemius tear was repaired in an over and over fashion. Left foot hardware removal, partial resection calcaneus/revision of retrocalcaneal exostectomy: Due to their not being any viable distal Achilles attachment, a new distal Achilles attachments had to be created. First saw was used to transect the base of the calcaneus and remove the previously implanted bone anchors. They were removed and sent as pathology and culture with the calcaneus bone. No obvious signs of osteomyelitis noted. A rasp was then used to smooth down bone edges so there were no bony prominences posteriorly. Wound was flushed with saline. Insertion/application bone/intramedullary drug device (Cerament G): Once the anchors were removed, gentamicin irrigation was used to irrigate the calcaneus and incision site. Decision made to insert Cerament G to allow for bone defect to be filled and harden, so new bone anchors could be placed. Left turn down lengthening flap: Attention was directed 15cm proximal to the proximal aspect of the defect site and incision was mapped out in the central 1/3 of the proximal gastroc/achilles tendon. Utilizing a 15 blade the Achilles centrally was transected from proximal to distal about 12cm. There was a 3 cm overlap of the tendon. The previous proximal tendon now became the distal attachment for the bone anchors into the calcaneus. Under tension the FHL tendon transfer was performed. FHL was attached to the distal Achilles using a minesh Araceli weave suture fashion. The Achilles was tensioned and in accordance with manufacture guidelines and standard technique, bone anchors were inserted through the distal Achilles into the calcaneus. Left FHL tendon transfer: Deep fascia over the FHL was transected. FHL was identified and transected as distal as possible at the medial ankle. Whipstitch performed around the distal FHL tendon. In accordance with bioprocessing manufacturing technician guidelines and standard technique a Bio-Tenodesis screw was inserted into the calcaneus just anterior to the Achilles insertion with the foot plantarflexed and tension on the FHL tendon. Attention was directed back to the Achilles turndown site where, 2-0 FiberWire was used to reapproximate the ends of the Achilles turndown at this lengthened position. 2-0 FiberWire and #2 FiberWire were used to reinforce the lengthening sites. Once the Achilles foot was completely reapproximated, tension was noted to the foot and ankle. Negative Murray test post-repair. The wound was flushed with copious amounts of saline with gentamicin irrigation. Left posterior ankle wound debridement and application of wound graft: There were defects noted in the peritenon/deep facia at the Achilles tear/previous open wound site. 15 blade and forceps were used to debride the open wound skin site of the nonviable macerated skin from where the wound VAC had been placed. Bleeding edges were noted to the skin edges. Postdebridement wound was 100% g ranular and extended full-thickness through skin, subcu, deep fascia to the level of the Achilles tendon; measured 4 x 1.2 x 2cm. Utilizing Vicryl, the remaining viable peritenon and deep fascia was approximated in a running fashion. Subcutaneous tissue was reapproximated. Proximally the wound closed with no tension without complication. Distally where the open wound site was noted, due to the defect in the tissue layers and skin, decision made to use a piece of graft prior to skin closure to avoid scar contracture and to provide coverage for the exposed Achilles tendon. PolyNovo graft was inserted and skin was reapproximated. Nylon used to close skin in a Donati Allgower suture fashion. Suture guard (chris-guard)s were placed at the level of the highest tension directly over the prior open wound site. The tourniquet was deflated at a total of 160 minutes. Immediate hyperemic response was noted to the digits. Application of posterior splint: Xeroform was applied to the incision followed by a dry sterile dressing. A posterior splint was then applied below the left knee. The patient was transferred to recovery with vital signs stable and neurovascular status intact. He appeared to tolerate procedure and anesthesia well without complication. Patient was transferred to the floor for 23 hrs observation. Materials: Parcus bone anchor system wt 4.5mm anchors x2, 7mm Arthex bi otenodesis screw, Cerament G, 2-0, #2 Fiberwire, Chris-guard (suture guard) x3, Polynovo MTX graft ([id number]) x1 *Plan for 23hrs observation post op admission -Admit per Dr Pearce, consult Dr Murguia -PT in am for gait training -NWB to LLE -Maintain dressing clean dry and intact -Ice behind left knee (has polar pack at home) -See consult note for d/c instructions -Plan for Podiatry dressing change in the am Tourniquet time (min): 160 Condition: stable Disposition: observation Specimens:: Left achilles tendon Left calcaneus Complications:: None
--- NOTE | 2023-11-09 18:08 | EXP.HP ---
History of Present Illness *Admission Date: 11/09/23 *Reason for visit:: foot surgery *History of present illness: Patient is a 48-year-old obese male who presented for open wound of the left posterior ankle with exposed Achilles tendon. 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 Patient tried and failed conservative care prior to surgery. Since his surgery he has been immobilized in a fracture boot, nonweightbearing with a rolling knee scooter, RICE protocol, NSAIDs. Patient has also been having weekly wound debridements with wound VAC changes with Dr. Huggins. Due to the extensive nature of the wound and the complexity of the potential weakness of the Achilles tendon strength, patient was referred for second opinion for evaluation and surgical management. Patient underwent left revisional achilles surgery today. Plan for 23hrs observation for pain mgmt and medical mgmt due to abnormal EKG-overnight cardiac monitoring. Dr Pearce will admit, Dr Murguia to consult. [facility] Disclaimer: The information contained in this section may have been updated after the patient was seen, as this information can be updated by other users. Medical History Kidney donor Surgical History H/O knee surgery History of open heart surgery Family History Father Grandfather Grandmother Coronary artery disease Mother Father Cancer Grandmother Grandfather Social History Smoking Status: Never smoker alcohol intake: never substance use type: denies use current occupational status: employed Travel in the last 8 weeks: None Review of Systems Constitutional Constitutional: Reports weakness (LLE) *Neurologic Neurologic: Reports system reviewed and no additional complaints, except as documented and Reports weakness (LLE) Meds Home Medications and Allergies Home Medications Medication Instructions Recorded Confirmed Type cyclobenzaprine 5 mg tablet 5 mg PO BID PRN muscle spasm #30 11/09/23 Rx tabs ibuprofen 800 mg tablet 800 mg PO Q8H PRN pain 30 days #90 11/09/23 Rx tabs ketorolac 10 mg tablet 10 mg PO Q6H PRN moderate pain 11/09/23 Rx (scale score 5-6) 5 days #20 tabs levofloxacin 750 mg tablet 750 mg PO DAILY 10 days #10 tabs 11/09/23 Rx ondansetron HCl 4 mg tablet 4 mg PO Q6H PRN nausea #30 tabs 11/09/23 Rx oxycodone-acetaminophen 10 mg-325 1 tab PO Q4-6H PRN severe pain 11/09/23 Rx mg tablet (scale score 7-10) 7 days #42 tabs New Prescriptions to Start Prescriptions: Allergies Allergy/AdvReac Type Severity Reaction Status Date / Time Sulfa (Sulfonamide AdvReac Intermediate Unknown Verified 11/09/23 07:52 Antibiotics) allergy reaction influenza virus vaccine AdvReac Unknown Verified 11/09/23 07:52 trivalent allergy reaction Exam Data for Last 24 hours Vital signs and Labs for Last 24 Hours: Temp Pulse Resp BP Pulse Ox O2 Del Method 98.6 F 83 18 149/72 H 96 Room Air 11/09/23 17:45 11/09/23 17:45 11/09/23 17:45 11/09/23 17:45 11/09/23 17:45 11/09/23 17:59 Laboratory Results - last 24 hr 11/09/23 16:55: WBC 20.9 H*, RBC 5.37, Hgb 17.2, Hct 52.9 H, MCV 98.4 H, MCH 32.0 H, MCHC 32.5, RDW 14.9, Plt Count 249, MPV 8.3, Neut % (Auto) 91.2 H, Lymph % (Auto) 5.1 L, [place] % (Auto) 2.9, Eos % (Auto) 0.3, Baso % (Auto) 0.5, Neut # (Auto) 19.1 H, Lymph # (Auto) 1.1, [place] # (Auto) 0.6, Eos # (Auto) 0.1, Baso # (Auto) 0.1, Total Counted 100, Neutrophils % (Manual) 89 H, Lymphocytes % (Manual) 10, Monocytes % (Manual) 1 L, Platelet Estimate Normal, RBC Morphology Normal, Sodium 140, Potassium 4.8, Chloride 104, Carbon Dioxide 26, Anion Gap 14.8, BUN 14, Creatinine 1.60 H, Estimated Creat Clear 53, Estimated GFR 46 L, Est GFR ( Amer) 56 L, Glucose 158 H, Calcium 9.1, Total Bilirubin 0.8, AST 45, ALT 44, Alkaline Phosphatase 92, Total Protein 7.5, Albumin 4.2, Globulin 3.3 H, Albumin/Globulin Ratio 1.3 I & O for Last 24 hours: Intake & Output 11/06/23 11/07/23 11/08/23 11/09/23 23:59 23:59 23:59 23:59 Intake Total 1999 Balance 1999 Weight 127.006 kg 127.006 kg Constitutional Constitutional: no acute distress *Routine HEENT Exam Head: Present normocephalic Eye: Present EOMI and PERRL ENT: Present mucous membranes moist *Routine Neck Exam Neck: Present supple; Absent lymphadenopathy *Routine Respiratory Exam Respiratory: Present CTA bilaterally *Routine Cardiovascular Exam Cardiovascular: Present RRR *Routine Abdominal Exam Abdominal: Present soft and normoactive bowel sounds; Absent tenderness *Routine Rectal Exam Rectal:: deferred *Routine Genitalia Exam Genitalia:: deferred *Routine Extremities Exam Extremities: Absent cyanosis, clubbing or edema Comments: left foot and ankle covered in dressing *Routine Skin Exam Skin: Present warm; Absent rash *Routine Neurological Exam Neurological: Present alert and oriented X3 Assessment and Plan *Assessment and plan (1) Status post Achilles tendon repair: Status: Acute Category: Surgical Code(s): Z98.890 - Other specified postprocedural states (2) Postoperative pain: Status: Acute Category: Medical Code(s): G89.18 - Other acute postprocedural pain (3) Hx of aortic valve repair: Status: Acute Category: Surgical Code(s): Z98.890 - Other specified postprocedural states; Z86.79 - Personal history of other diseases of the circulatory system (4) Morbid obesity: Status: Acute Category: Medical Code(s): E66.01 - Morbid (severe) obesity due to excess calories Plan Patient is a 48-year-old male with past medical history of hypertension, morbid obesity who presented to hospital for scheduled surgery for left Achilles tendon, patient had failed outpatient conservative management, patient underwent surgery for left Achilles tendon repair. At time of my evaluation patient denies chest pain shortness of breath nausea vomiting diarrhea constipation dysuria. He has pain at site of surgery otherwise denies any acute complaints. Assessment and plan Achilis tendinitis Left ankle wound Status post surgery by podiatry Pain control Consult PT/OT Consult podiatry Consult wound care Start IV antibiotics with vancomycin, cefepime Acute kidney injury Likely prerenal Gentle IV fluid therapy Monitor creatinine Hold off of nephrotoxic medications Leukocytosis likely secondary to #1 Check blood cultures Continue on vancomycin, cefepime Morbid obesity -Counseled on weight loss DVT prophylaxis-heparin
[2023-11-09] MEDS: VANCOMYCIN CONSULT REQUEST 1 EACH NOTAPPLIC (18:32)
[2023-11-09] MEDS: KETOROLAC 30MG/ML VIAL 30 MG IV (18:35)
[2023-11-09] MEDS: 0.9 % SODIUM CHLORIDE 1000ML 1,000 ML 75 ML IV (18:35)
[2023-11-09] MEDS: CEFEPIME HCL 2 GM in 0.9 % SODIUM CHLORIDE 100 ML IV (21:49)
[2023-11-10] VITALS: BP 125/64; PULSE 81; RESP 16; TEMP 37.3; O2SAT 95
[2023-11-10] MEDS: HYDROCODONE/APAP 5/325 MG TABLET 1 TAB PO ×2 (00:08→06:59)
[2023-11-10] MEDS: VANCOMYCIN/WATER FOR INJ (PEG) 1.25 GM/250 ML PIGGYBACK IV (00:08)
[2023-11-10] MEDS: HEPARIN SODIUM 5,000 UNIT/ML VIAL 5000 UNIT SQ ×2 (00:09→09:46)
[2023-11-10 04:00] VITALS: BP 118/65; PULSE 80; RESP 16; TEMP 37.2; O2SAT 95; BMI 42.4
[2023-11-10] MEDS: CEFEPIME HCL 2 GM in 0.9 % SODIUM CHLORIDE 100 ML IV (04:20)
[2023-11-10 06:09] LABS: Basophils # 0.1 K/mm3 (0-0.2); Basophils % 0.6 % (0.1-2.0); Eosinophils % 0.1 % (0.1-12.0); Hematocrit 42.4 % (42.0-52.0); Lymphocytes # 1.4 K/mm3 (0.7-4.5); Lymphocytes % 8.7 % (10-50); Mean Corpuscular HGB Conc 31.8 g/dL (31.8-35.4); Mean Corpuscular Hemoglobin 31.4 pg (27.0-31.2); Mean Corpuscular Volume 98.6 fl (80-94); Mean Platelet Volume 8.5 fl (7.4-10.4); Monocytes # 0.8 K/mm3 (0.1-1.0); Monocytes % 4.7 % (1.7-9.3); Neutrophils % 85.9 % (37.0-80.0); Platelet Count 167 K/mm3 (142-424); Red Cell Distribution Width 14.8 % (11.5-17.5); White Blood Count 16.3 K/mm3 (4.8-10.8)
[2023-11-10 06:11] LABS: Alanine Aminotransferase 32 U/L (12-78); Albumin Level 3.3 g/dl (3.5-5.0); Albumin/Globulin Ratio 1.3 (1.1-1.8); Alkaline Phosphatase 71 U/L (38-126); Anion Gap 12.5 mEq/L (5-15); Aspartate Amino Transferase 41 U/L (17-59); Bilirubin,Total 0.5 mg/dl (0.2-1.3); Blood Urea Nitrogen 21 mg/dl (9-20); Calcium 8.5 mg/dl (8.4-10.2); Carbon Dioxide 27 mmol/L (22.0-30.0); Chloride 105 mmol/L (98-107); Creatinine Clearance Estimated 57 mL/min (50-200); Estimated Glomerular Filt Rate 50 ml/min (>60); GFR (African American) 60 ML/MIN (>60); Globulin 2.6 g/dL (1.3-3.2); Glucose 134 mg/dl (74-100); Potassium 4.5 mmoL/L (3.5-5.1); Sodium 140 mmol/L (136-145); Total Protein,Serum 5.9 g/dl (6.3-8.2)
[2023-11-10 06:17] LABS: Hemoglobin 13.5 g/dL (14.1-18.0); MANUAL DIFFERENTIAL MANUAL DIFFERENTIAL (MANUAL DIFF)
--- NOTE | 2023-11-10 06:54 | P.CONS_ITS ---
History of Present Illness *Admission Date: 11/09/23 *History of present illness: Patient is a 48-year-old obese male who presented for open wound of the left posterior ankle with exposed Achilles tendon. 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 Patient tried and failed conservative care prior to surgery. Since his surgery he has been immobilized in a fracture boot, nonweightbearing with a rolling knee scooter, RICE protocol, NSAIDs. Patient has also been having weekly wound debridements with wound VAC changes with Dr. Huggins. (He has had two prior surgeries by another provider.) Due to the extensive nature of the wound and the complexity of the potential weakness of the Achilles tendon strength, patient was referred for second opinion for evaluation and surgical management. Patient underwent left revisional achilles surgery today. Plan for 23hrs observation for pain mgmt and medical mgmt due to abnormal EKG-overnight cardiac monitoring. Dr Pearce will admit, Dr Murguia to consult. 11/10/23: Post op day#1 - Patient is doing very well this morning, at bedside. He stated he slept well and no pain to surgical site. [facility] Disclaimer: The information contained in this section may have been updated after the patient was seen, as this information can be updated by other users. Medical History Kidney donor Surgical History H/O knee surgery History of open heart surgery Family History Father Grandfather Grandmother Coronary artery disease Mother Father Cancer Grandmother Grandfather Social History Smoking Status: Never smoker alcohol intake: never substance use type: denies use current occupational status: employed Travel in the last 8 weeks: None Review of Systems Constitutional Constitutional: Reports weakness (LLE) *Neurologic Neurologic: Reports system reviewed and no additional complaints, except as documented and Reports weakness (LLE) Meds Home Medications and Allergies Home Medications Medication Instructions Recorded Confirmed Type cyclobenzaprine 5 mg tablet 5 mg PO BID PRN muscle spasm #30 11/09/23 Rx tabs ibuprofen 800 mg tablet 800 mg PO Q8H PRN pain 30 days #90 11/09/23 Rx tabs ketorolac 10 mg tablet 10 mg PO Q6H PRN moderate pain 11/09/23 Rx (scale score 5-6) 5 days #20 tabs levofloxacin 750 mg tablet 750 mg PO DAILY 10 days #10 tabs 11/09/23 Rx ondansetron HCl 4 mg tablet 4 mg PO Q6H PRN nausea #30 tabs 11/09/23 Rx oxycodone-acetaminophen 10 mg-325 1 tab PO Q4-6H PRN severe pain 11/09/23 Rx mg tablet (scale score 7-10) 7 days #42 tabs cholecalciferol (vitamin D3) 1,250 1,250 mcg PO WEEKLY #14 caps 11/10/23 Rx mcg (50,000 unit) capsule gabapentin 300 mg capsule 300 mg PO TID PRN nerve pain 10 11/10/23 Rx days #30 caps New Prescriptions to Start Prescriptions: Allergies Allergy/AdvReac Type Severity Reaction Status Date / Time Sulfa (Sulfonamide AdvReac Intermediate Unknown Verified 11/09/23 07:52 Antibiotics) allergy reaction influenza virus vaccine AdvReac Unknown Verified 11/09/23 07:52 trivalent allergy reaction Exam (Inpt) Vital signs and Labs for Last 24 Hours: Temp Pulse Resp BP Pulse Ox O2 Del Method 98.9 F 80 16 118/65 95 Room Air 11/10/23 04:00 11/10/23 04:00 11/10/23 04:00 11/10/23 04:00 11/10/23 04:00 11/10/23 04:00 Laboratory Results - last 24 hr 11/09/23 16:55: WBC 20.9 H*, RBC 5.37, Hgb 17.2, Hct 52.9 H, MCV 98.4 H, MCH 32.0 H, MCHC 32.5, RDW 14.9, Plt Count 249, MPV 8.3, Neut % (Auto) 91.2 H, Lymph % (Auto) 5.1 L, [place] % (Auto) 2.9, Eos % (Auto) 0.3, Baso % (Auto) 0.5, Neut # (Auto) 19.1 H, Lymph # (Auto) 1.1, [place] # (Auto) 0.6, Eos # (Auto) 0.1, Baso # (Auto) 0.1, Total Counted 100, Neutrophils % (Manual) 89 H, Lymphocytes % (Manual) 10, Monocytes % (Manual) 1 L, Platelet Estimate Normal, RBC Morphology Normal, Sodium 140, Potassium 4.8, Chloride 104, Carbon Dioxide 26, Anion Gap 14.8, BUN 14, Creatinine 1.60 H, Estimated Creat Clear 53, Estimated GFR 46 L, E st GFR ( Amer) 56 L, Glucose 158 H, Calcium 9.1, Total Bilirubin 0.8, AST 45, ALT 44, Alkaline Phosphatase 92, Total Protein 7.5, Albumin 4.2, Globulin 3.3 H, Albumin/Globulin Ratio 1.3 11/10/23 05:43: WBC 16.3 H, RBC 4.30 L, Hgb 13.5 L D, Hct 42.4, MCV 98.6 H, MCH 31.4 H, MCHC 31.8, RDW 14.8, Plt Count 167 D, MPV 8.5, Neut % (Auto) 85.9 H, L ymph % (Auto) 8.7 L, [place] % (Auto) 4.7, Eos % (Auto) 0.1, Baso % (Auto) 0.6, N eut # (Auto) 14.0 H, Lymph # (Auto) 1.4, [place] # (Auto) 0.8, Eos # (Auto) 0.0, Baso # (Auto) 0.1, Sodium 140, Potassium 4.5, Chloride 105, Carbon Dioxide 27, Anion Gap 12.5, BUN 21 H D, Creatinine 1.50 H, Estimated Creat Clear 57, E stimated GFR 50 L, Est GFR ( Amer) 60, Glucose 134 H, Calcium 8.5, Total Bilirubin 0.5, AST 41, ALT 32 D, Alkaline Phosphatase 71, Total Protein 5.9 L, Albumin 3.3 L D, Globulin 2.6, Albumin/Globulin Ratio 1.3 I & O for Labs for Last 24 Hours: Intake & Output 11/07/23 11/08/23 11/09/23 11/10/23 23:59 23:59 23:59 23:59 Intake Total 2480 / 2480 735 / 735 Output Total 300 / 300 250 / 250 Balance 2180 / 2180 485 / 485 Weight 280 lb 280 lb 280 lb 0.005 oz Constitutional: Present no acute distress and morbidly obese Head: Present normocephalic Neck: Present normal inspection Respiratory: Present normal respiratory effort and able to speak in complete sentences Comment:: Some sinus draiange this am but encouraged him to use his incentive spirometer at home. Cardiac: Present posterior tibial pulses present and pedal pulses present GI: Present soft Rectal (male): Present deferred (male): Present deferred Extremities: Present normal inspection, tenderness, normal capillary refill and edema Comment:: LLE splint and dressing clean dry and intact no visible drainage noted. No calf or thigh pain b/l. New dressing applied this morning. Skin: Present intact Comment:: Sutures to left posterior ankle. Neuro: Present Motor Function Intact, Sensory Function Intact, oriented x 3 and moves all extremities Ankle: bilateral: normal inspection and bilateral: tenderness (r/t surgical site ) Feet/Toes: left: swelling (Able to move toes, trace edema ) and left: wound (LLE ) Inspection: Present other (LLE surgical site s/p Achilles repair) Pulses: L dorsalis pedis pulse: normal, R dorsalis pedis pulse: normal, L posterior tibial pulse: normal and R posterior tibial pulse: normal CFT: normal: CFT Results Labs 11/10/23 05:43 11/10/23 05:43 Labs: Abnormal lab results 11/09/23 11/10/23 Range/Units 16:55 05:43 WBC 20.9 H* 16.3 H (4.8-10.8) K/mm3 RBC 4.30 L (4.60-6.20) M/mm3 Hgb 13.5 L D (14.1-18.0) g/dL Hct 52.9 H (42.0-52.0) % MCV 98.4 H 98.6 H (80-94) fl MCH 32.0 H 31.4 H (27.0-31.2) pg Neut % (Auto) 91.2 H 85.9 H (37.0-80.0) % Lymph % (Auto) 5.1 L 8.7 L (10-50) % Neut # (Auto) 19.1 H 14.0 H (1.8-7.8) K/mm3 Neutrophils % (Manual) 89 H (42-76) % Monocytes % (Manual) 1 L (2-9) % BUN 21 H D (9-20) mg/dl Creatinine 1.60 H 1.50 H (0.66-1.25) mg/dl Estimated GFR 46 L 50 L (>60) ml/min Est GFR ( Amer) 56 L (>60) ML/MIN Glucose 158 H 134 H (74-100) mg/dl Total Protein 5.9 L (6.3-8.2) g/dl Albumin 3.3 L D (3.5-5.0) g/dl Globulin 3.3 H (1.3-3.2) g/dL H & H 11/09/23 11/10/23 Range/Units 16:55 05:43 Hgb 17.2 13.5 L D (14.1-18.0) g/dL Hct 52.9 H 42.4 (42.0-52.0) % All other labs normal. Assessment and Plan *Assessment and plan (1) Status post Achilles tendon repair: Status: Acute Category: Surgical Code(s): Z98.890 - Other specified postprocedural states (2) Postoperative pain: Status: Acute Category: Medical Code(s): G89.18 - Other acute postprocedural pain (3) Hx of aortic valve repair: Status: Acute Category: Surgical Code(s): Z98.890 - Other specified postprocedural states; Z86.79 - Personal history of other diseases of the circulatory system (4) Abnormal electrocardiogram [ECG] [EKG]: Status: Acute Category: Medical Code(s): R94.31 - Abnormal electrocardiogram [ECG] [EKG] (5) Morbid obesity: Status: Acute Category: Medical Code(s): E66.01 - Morbid (severe) obesity due to excess calories Plan 11/10/23: POD: #1 DOS: Surgery, 11/09/23: s/p left achilles reconstruction, hardware removal -IV 1g Cefepime, 1g Vanco given -Hx of 10/06/23, left ankle WCx (+) Pseudomonas and staph epi (Resist to [place]) -Patient is to maintain dressing clean dry and intact. -Ice behind the left knee and elevate on two pillows. -Has polar pack at home. -Non weight bearing to the left lower extremity with DME assistance (walker, rolling knee scooter). -Continue incentive spirometer q1h. -Rx for Percocet 10/325 and Flexeril given. e-Rx given for oral Levo 750mg, Zofran, Ketorolac and Motrin 800mg,Vit. D 50,000 IU once weekly. (Clinic Pharmacy meds to bed). -Dressing changed, site cleaned with betadine swabs, xeroform, betadine soaked gauze,dry sterile gauze, kerlix, soft roll, zhen and splint. We will not need to apply a wound vac at this time. -Plan to see patient in the office possibly on Tuesday for dressing change. -PT in am for gait training. -Plan for likely d/c home at some point today after PT eval.
--- NOTE | 2023-11-10 07:35 | EXP.PHA.CONS ---
Pharmacy Consult Date: 11/10/23 Time: 07:43 Referring provider: DR WEINBERG Reason for Consult:: VANCOMYCIN DOSING CONSULT Allergies Allergy/AdvReac Type Severity Reaction Status Date / Time Sulfa (Sulfonamide AdvReac Intermediate Unknown Verified 11/09/23 07:52 Antibiotics) allergy reaction influenza virus vaccine AdvReac Unknown Verified 11/09/23 07:52 trivalent allergy reaction Home Medications Medication Instructions Recorded Confirmed Type cyclobenzaprine 5 mg tablet 5 mg PO BID PRN muscle spasm #30 11/09/23 Rx tabs ibuprofen 800 mg tablet 800 mg PO Q8H PRN pain 30 days #90 11/09/23 Rx tabs ketorolac 10 mg tablet 10 mg PO Q6H PRN moderate pain 11/09/23 Rx (scale score 5-6) 5 days #20 tabs levofloxacin 750 mg tablet 750 mg PO DAILY 10 days #10 tabs 11/09/23 Rx ondansetron HCl 4 mg tablet 4 mg PO Q6H PRN nausea #30 tabs 11/09/23 Rx oxycodone-acetaminophen 10 mg-325 1 tab PO Q4-6H PRN severe pain 11/09/23 Rx mg tablet (scale score 7-10) 7 days #42 tabs New Prescriptions to Start Prescriptions: Height: 1.73 m Weight: 127.006 kg Laboratory Results:: Laboratory Results - last 24 hr 11/09/23 16:55: WBC 20.9 H*, RBC 5.37, Hgb 17.2, Hct 52.9 H, MCV 98.4 H, MCH 32.0 H, MCHC 32.5, RDW 14.9, Plt Count 249, MPV 8.3, Neut % (Auto) 91.2 H, Lymph % (Auto) 5.1 L, [place] % (Auto) 2.9, Eos % (Auto) 0.3, Baso % (Auto) 0.5, Neut # (Auto) 19.1 H, Lymph # (Auto) 1.1, [place] # (Auto) 0.6, Eos # (Auto) 0.1, Baso # (Auto) 0.1, Total Counted 100, Neutrophils % (Manual) 89 H, Lymphocytes % (Manual) 10, Monocytes % (Manual) 1 L, Platelet Estimate Normal, RBC Morphology Normal, Sodium 140, Potassium 4.8, Chloride 104, Carbon Dioxide 26, Anion Gap 14.8, BUN 14, Creatinine 1.60 H, Estimated Creat Clear 53, Estimated GFR 46 L, Est GFR ( Amer) 56 L, Glucose 158 H, Calcium 9.1, Total Bilirubin 0.8, AST 45, ALT 44, Alkaline Phosphatase 92, Total Protein 7.5, Albumin 4.2, Globulin 3.3 H, Albumin/Globulin Ratio 1.3 11/10/23 05:43: WBC 16.3 H, RBC 4.30 L, Hgb 13.5 L D, Hct 42.4, MCV 98.6 H, MCH 31.4 H, MCHC 31.8, RDW 14.8, Plt Count 167 D, MPV 8.5, Neut % (Auto) 85.9 H, Lymph % (Auto) 8.7 L, [place] % (Auto) 4.7, Eos % (Auto) 0.1, Baso % (Auto) 0.6, Neut # (Auto) 14.0 H, Lymph # (Auto) 1.4, [place] # (Auto) 0.8, Eos # (Auto) 0.0, Baso # (Auto) 0.1, Sodium 140, Potassium 4.5, Chloride 105, Carbon Dioxide 27, Anion Gap 12.5, BUN 21 H D, Creatinine 1.50 H, Estimated Creat Clear 57, Estimated GFR 50 L, Est GFR ( Amer) 60, Glucose 134 H, Calcium 8.5, Total Bilirubin 0.5, AST 41, ALT 32 D, Alkaline Phosphatase 71, Total Protein 5.9 L, Albumin 3.3 L D, Globulin 2.6, Albumin/Globulin Ratio 1.3 Medical History: Medical History (Updated 11/09/23 @ 17:43 by Estefania Murguia DPM) Kidney donor Assessment and Plan Assessment and plan all Dx Assessment and Plan for all problems:: Pharmacokinetic dosing service Objective: Age: 48 yo Serum creatinine: 1.5 mg/dL Height: 68.1 Inches Weight (kg): 127.006 Diagnosis: LEFT ANKLE WOUND Assessment: IBW (kg): 68.63 Dosing wt(kg): 127.006 Estimated Creatinine clearance (ml/min): 57.2 CRCL method: Cockcroft and Gault using ibw(default). Drug selected: Vancomycin Loading dose (mg): 2500 MG Vd (liters): 95.3 (factor used: 0.75 L/kg) Kris (hr-1): 0.052 Half life (hrs): 13.33 CLvanco=?? 4.956 L/hr Recommended dose: 2000 mg Interval: 18 hrs Infusion time (hrs): 2.0 Predicted peak (mcg/mL): 32.8 Predicted trough (mcg/mL): 14.27 Total body weight is being used for vancomycin dosing. Recommendations: Give Vancomycin 2000 mg q 18 hrs with an expected Cpeak of 32.8 mcg/ml and an expected Ctrough of 14.27 mcg/ml TO START 11/10/23 AT 18:00, PATIENT HAS HAD TWO DOSES OF VANCOMYCIN IV IN THE LAST 24 HOURS, A 2500 MG PREOP DOSE AND 1250 MG DOSE AT 00:08 (11/10/23). AUC 0-24 /LEIDY Data: LEIDY 0.5 mcg/mL:?? AUC/LEIDY:? 1076.1 LEIDY 1.0 mcg/mL:?? AUC/LEIDY:? 538.1 --------- LEIDY 1.5 mcg/mL:?? AUC/LEIDY:? 358.7 LEIDY 2.0 mcg/mL:?? AUC/LEIDY:? 269.0 Thank you for the consult
[2023-11-10 07:45] LABS: Lymphocytes % 8 % (10-50); Monocytes % 5 % (2-9); Neutrophils % 82 % (42-76); Total Cells Counted 100
[2023-11-10 07:46] LABS: Anisocytosis 1+; Macrocytosis 1+; Platelet Estimate Normal
[2023-11-10 08:00] VITALS: BP 130/59; PULSE 81; RESP 20; TEMP 36.8; O2SAT 97
--- NOTE | 2023-11-10 09:35 | HMH.PTEV ---
Physical Therapy Evaluation Rehab PT IP Evaluation Start: 11/09/23 17:20 Freq: ONCE Status: Active Protocol: Document 11/10/23 09:32 ANALIA (Rec: 11/10/23 09:35 ANALIA [email or web address]) Subjective/History History History Per H&P: Patient is a 48-year-old obese male who presented for open wound of the left posterior ankle with exposed Achilles tendon. 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 Patient tried and failed conservative care prior to surgery. Since his surgery he has been immobilized in a fracture boot, nonweightbearing with a rolling knee scooter, RICE protocol, NSAIDs. Patient has also been having weekly wound debridements with wound VAC changes with Dr. Huggins. Due to the extensive nature of the wound and the complexity of the potential weakness of the Achilles tendon strength, patient was referred for second opinion for evaluation and surgical management. Patient underwent left revisional achilles surgery today. Plan for 23hrs observation for pain mgmt and medical mgmt due to abnormal EKG-overnight cardiac monitoring. Dr Pearce will admit, Dr Murguia to consult. Subjective Subjective PLOF per pt report: Pt lives in a mulit-story home with 3 TRANG with family. Pt was IND with ADLs, working, and functional mobility. Pt owns a knee scooter since his first surgery and reports independence with it as well. able to assist as needed. New diagnosis of cancer in past 12 No months? Rehab PT IP Eval Objective Appearance Patient Behavior Appropriate,Cooperative Patient Orientation Person,Birthday,Situation Difficulty following instructions none Speech Pattern Clear Ambulation Patient Able to Ambulate Yes Ambulation Observation IP General Gait Pattern Observation No Deviations/Normal Ambulation Distance (feet) 10 Ambulation Ability Supervision/Stand by Balance Ability to Arise Able, uses arms to help Sitting Balance Steady, safe Standing Balance Steady, wide stance Transfers Bed Transfer Ability Supervision/Stand by Sit to Stand Bed Transfer Ability Supervision/Stand by Rehab PT IP prob,goals,plan Problems Date of Evaluation: 11/10/23 Rehab Potential Rehab Potential Innapropriate for Skilled Therapy Discharge Plan PT Discharge Plan Pt safe to d/c home when deemed medically necessary d/t current level of mobility, home set-up, and family support. Pt was IND with using his knee scooter. Pt not appropriate for skilled acute care PT at this time d/t pt?s mobility being at baseline. Eval Complexity Eval Charge Codes 89445 - Moderate Complexity PHYSICIAN CERTIFICATION: I certify the specified therapy services for Nelda Wilson are required, authorized, and reviewed every 30 days.
[2023-11-10] MEDS: MORPHINE 2MG/ML SYRINGE 2 MG IV (09:58)
--- NOTE | 2023-11-10 10:05 | HMH.OTEV ---
OT Inpatient Evaluation Rehab OT IP Evaluation Start: 11/09/23 18:15 Freq: ONCE Status: Active Protocol: Document 11/10/23 10:00 RMARSHALL (Rec: 11/10/23 10:05 [facility] Rehab OT IP Assessment Subjective History Per H&P: Patient is a 48-year-old obese male who presented for open wound of the left posterior ankle with exposed Achilles tendon. 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 Patient tried and failed conservative care prior to surgery. Since his surgery he has been immobilized in a fracture boot, nonweightbearing with a rolling knee scooter, RICE protocol, NSAIDs. Patient has also been having weekly wound debridements with wound VAC changes with Dr. Huggins. Due to the extensive nature of the wound and the complexity of the potential weakness of the Achilles tendon strength, patient was referred for second opinion for evaluation and surgical management. Patient underwent left revisional achilles surgery today. Plan for 23hrs observation for pain mgmt and medical mgmt due to abnormal EKG-overnight cardiac monitoring. Dr Pearce will admit, Dr Murguia to consult. Subjective PLOF per pt report: Pt lives in a mulit-story home with 3 TRANG with family. Pt was IND with ADLs, working, and functional mobility. Pt owns a knee scooter since his first surgery and reports independence with it as well. able to assist as needed. Objective Patient Orientation Person,Place,Birthday Right Upper Extremity Gross ROM WNL Left Upper Extremity Gross ROM WNL Bed Mobility bed mobility-scooting,bed mobility - supine/sit Assist Level Supervision/Stand by Transfer Training Sit/Stand Transfer Assist Level Supervision/Stand by Rehab OT IP prob,goals,plan Problems Date of Evaluation: 11/10/23 Rehab Potential Rehab Potential Innapropriate for Skilled Therapy Discharge Plan OT Discharge Plan Pt safe to d/c home when deemed medically necessary d/t current level of mobility, home set-up, and family support. Pt was IND with using his knee scooter, functional transfers, and ADLS. Pt not appropriate for skilled acute care OT at this time d/t pt?s functioning being at baseline. Eval Complexity Eval Charge Codes 21035 - Moderate Complexity PHYSICIAN CERTIFICATION: I certify the specified therapy services for Nelda Trivedierton are required, authorized, and reviewed every 30 days.
[2023-11-10 11:39] VITALS: BP 116/63; PULSE 76; RESP 21; TEMP 36.9; O2SAT 96
--- NOTE | 2023-11-10 12:25 | EXP.DC.SUM ---
General Admission date:: 11/09/23 Discharge date: 11/10/23 HPI HPI HPI: Patient is a 48-year-old obese male who presented for open wound of the left posterior ankle with exposed Achilles tendon. 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 Patient tried and failed conservative care prior to surgery. Since his surgery he has been immobilized in a fracture boot, nonweightbearing with a rolling knee scooter, RICE protocol, NSAIDs. Patient has also been having weekly wound debridements with wound VAC changes with Dr. Huggins. (He has had two prior surgeries by another provider.) Due to the extensive nature of the wound and the complexity of the potential weakness of the Achilles tendon strength, patient was referred for second opinion for evaluation and surgical management. Patient underwent left revisional achilles surgery today. Plan for 23hrs observation for pain mgmt and medical mgmt due to abnormal EKG-overnight cardiac monitoring. Dr Pearce will admit, Dr Murguia to consult. 11/10/23: Post op day#1 - Patient is doing very well this morning, at bedside. He stated he slept well and no pain to surgical site. Hospital Course Hospital Course Hospital Course: patient was admitted for surgery by podiatry for achilis tendon repair. Patient tolerated surgery well, he does not have any further questions today. Patient to follow up with Podiatry, PT as outpatient, patient and agreed with the discharge plan. Total time spent 38 mints, patient is discharged in stable condition and verbalized and agreed with the discharge plan. Following are dc recommendations per podaitry -Rx for Percocet 10/325 and Flexeril given. e-Rx given for oral Levo 750mg, Zofran, Ketorolac and Motrin 800mg,Vit. D 50,000 IU once weekly. (Clinic Pharmacy meds to bed). -Dressing changed, site cleaned with betadine swabs, xeroform, betadine soaked gauze,dry sterile gauze, kerlix, soft roll, zhen and splint. We will not need to apply a wound vac at this time. -Plan to see patient in the office possibly on Tuesday for dressing change. -PT for gait training. Exam Data for Last 24 hours Vital signs and Labs for Last 24 Hours: Temp Pulse Resp BP Pulse Ox O2 Del Method 98.4 F 76 21 116/63 96 Room Air 11/10/23 11:39 11/10/23 11:39 11/10/23 11:39 11/10/23 11:39 11/10/23 11:39 11/10/23 11:39 Laboratory Results - last 24 hr 11/09/23 16:55: WBC 20.9 H*, RBC 5.37, Hgb 17.2, Hct 52.9 H, MCV 98.4 H, MCH 32.0 H, MCHC 32.5, RDW 14.9, Plt Count 249, MPV 8.3, Neut % (Auto) 91.2 H, Lymph % (Auto) 5.1 L, Du[place] % (Auto) 2.9, Eos % (Auto) 0.3, Baso % (Auto) 0.5, Neut # (Auto) 19.1 H, Lymph # (Auto) 1.1, Duval # (Auto) 0.6, Eos # (Auto) 0.1, Baso # (Auto) 0.1, Total Counted 100, Neutrophils % (Manual) 89 H, Lymphocytes % (Manual) 10, Monocytes % (Manual) 1 L, Platelet Estimate Normal, RBC Morphology Normal, Sodium 140, Potassium 4.8, Chloride 104, Carbon Dioxide 26, Anion Gap 14.8, BUN 14, Creatinine 1.60 H, Estimated Creat Clear 53, Estimated GFR 46 L, Est GFR ( Amer) 56 L, Glucose 158 H, Calcium 9.1, Total Bilirubin 0.8, AST 45, ALT 44, Alkaline Phosphatase 92, Total Protein 7.5, Albumin 4.2, Globulin 3.3 H, Albumin/Globulin Ratio 1.3 11/10/23 05:43: WBC 16.3 H, RBC 4.30 L, Hgb 13.5 L D, Hct 42.4, MCV 98.6 H, MCH 31.4 H, MCHC 31.8, RDW 14.8, Plt Count 167 D, MPV 8.5, Neut % (Auto) 85.9 H, Lymph % (Auto) 8.7 L, Duval % (Auto) 4.7, Eos % (Auto) 0.1, Baso % (Auto) 0.6, Neut # (Auto) 14.0 H, Lymph # (Auto) 1.4, Duval # (Auto) 0.8, Eos # (Auto) 0.0, Baso # (Auto) 0.1, Total Counted 100, Neutrophils % (Manual) 82 H, Band Neutrophils % 5.0, Lymphocytes % (Manual) 8 L, Monocytes % (Manual) 5, Platelet Estimate Normal, Anisocytosis 1+, Macrocytosis 1+, Sodium 140, Potassium 4.5, Chloride 105, Carbon Dioxide 27, Anion Gap 12.5, BUN 21 H D, Creatinine 1.50 H, Estimated Creat Clear 57, Estimated GFR 50 L, Est GFR ( Amer) 60, Glucose 134 H, Calcium 8.5, Total Bilirubin 0.5, AST 41, ALT 32 D, Alkaline Phosphatase 71, Total Protein 5.9 L, Albumin 3.3 L D, Globulin 2.6, Albumin/Globulin Ratio 1.3 I & O for Last 24 hours: Intake & Output 11/07/23 11/08/23 11/09/23 11/10/23 23:59 23:59 23:59 23:59 Intake Total 2480 / 3215 1315 / 1315 Output Total 300 / 550 250 / 250 Balance 2180 / 2665 1065 / 1065 Weight 127.006 kg 127.006 kg 127.006 kg Constitutional Constitutional: no acute distress *Routine HEENT Exam Head: Present normocephalic Eye: Present EOMI and PERRL ENT: Present mucous membranes moist *Routine Neck Exam Neck: Present supple; Absent lymphadenopathy *Routine Respiratory Exam Respiratory: Present CTA bilaterally *Routine Cardiovascular Exam Cardiovascular: Present RRR *Routine Abdominal Exam Abdominal: Present soft and normoactive bowel sounds; Absent tenderness *Routine Extremities Exam Extremities: Absent cyanosis, clubbing or edema Comments: left foot and ankle covered in dressing *Routine Skin Exam Skin: Present warm; Absent rash *Routine Neurological Exam Neurological: Present alert and oriented X3 Results Data Completed and Pending Labs on day of discharge: Labs from last 24 hours 11/10/23 11/09/23 05:43 16:55 WBC 16.3 H 20.9 H* RBC 4.30 L 5.37 Hgb 13.5 L D 17.2 Hct 42.4 52.9 H MCV 98.6 H 98.4 H MCH 31.4 H 32.0 H MCHC 31.8 32.5 RDW 14.8 14.9 Plt Count 167 D 249 MPV 8.5 8.3 Neut % (Auto) 85.9 H 91.2 H Lymph % (Auto) 8.7 L 5.1 L Duval % (Auto) 4.7 2.9 Eos % (Auto) 0.1 0.3 Baso % (Auto) 0.6 0.5 Neut # (Auto) 14.0 H 19.1 H Lymph # (Auto) 1.4 1.1 Duval # (Auto) 0.8 0.6 Eos # (Auto) 0.0 0.1 Baso # (Auto) 0.1 0.1 Total Counted 100 100 Neutrophils % (Manual) 82 H 89 H Band Neutrophils % 5.0 Lymphocytes % (Manual) 8 L 10 Monocytes % (Manual) 5 1 L Platelet Estimate Normal Normal RBC Morphology Normal Anisocytosis 1+ Macrocytosis 1+ Sodium 140 140 Potassium 4.5 4.8 Chloride 105 104 Carbon Dioxide 27 26 Anion Gap 12.5 14.8 BUN 21 H D 14 Creatinine 1.50 H 1.60 H Estimated Creat Clear 57 53 Estimated GFR 50 L 46 L Est GFR ( Amer) 60 56 L Glucose 134 H 158 H Calcium 8.5 9.1 Total Bilirubin 0.5 0.8 AST 41 45 ALT 32 D 44 Alkaline Phosphatase 71 92 Total Protein 5.9 L 7.5 Albumin 3.3 L D 4.2 Globulin 2.6 3.3 H Albumin/Globulin Ratio 1.3 1.3 DS: Diagnosis Discharge Diagnosis (1) Status post Achilles tendon repair: Status: Acute Code(s): Z98.890 - Other specified postprocedural states (2) Postoperative pain: Status: Acute Code(s): G89.18 - Other acute postprocedural pain (3) Vitamin D deficiency: Status: Acute Code(s): E55.9 - Vitamin D deficiency, unspecified (4) Morbid obesity: Status: Acute Code(s): E66.01 - Morbid (severe) obesity due to excess calories Meds Home Medications and Allergies Home Medications Medication Instructions Recorded Confirmed Type cyclobenzaprine 5 mg tablet 5 mg PO BID PRN muscle spasm #30 11/09/23 Rx tabs ibuprofen 800 mg tablet 800 mg PO Q8H PRN pain 30 days #90 11/09/23 Rx tabs ketorolac 10 mg tablet 10 mg PO Q6H PRN moderate pain 11/09/23 Rx (scale score 5-6) 5 days #20 tabs levofloxacin 750 mg tablet 750 mg PO DAILY 10 days #10 tabs 11/09/23 Rx ondansetron HCl 4 mg tablet 4 mg PO Q6H PRN nausea #30 tabs 11/09/23 Rx oxycodone-acetaminophen 10 mg-325 1 tab PO Q4-6H PRN severe pain 11/09/23 Rx mg tablet (scale score 7-10) 7 days #42 tabs cholecalciferol (vitamin D3) 1,250 1,250 mcg PO WEEKLY #14 caps 11/10/23 Rx mcg (50,000 unit) capsule gabapentin 300 mg capsule 300 mg PO TID PRN nerve pain 10 11/10/23 Rx days #30 caps New Prescriptions to Start Prescriptions: Allergies Allergy/AdvReac Type Severity Reaction Status Date / Time Sulfa (Sulfonamide AdvReac Intermediate Unknown Verified 11/09/23 07:52 Antibiotics) allergy reaction influenza virus vaccine AdvReac Unknown Verified 11/09/23 07:52 trivalent allergy reaction Discharge Plan Disposition Patient Disposition: Home, Self-Care Condition: Good Follow up Plan Follow up with: Provider,Referral, MD [Primary Care Provider] - 1 week Estefania Murguia DPM [Staff Physician] - 1 week Prescriptions/Medication Reconciliation: Continued oxycodone-acetaminophen 10-325 mg tablet 1 tab PO Q4-6H PRN (Reason: severe pain (scale score 7-10)) 7 Days Qty: 42 0RF cyclobenzaprine 5 mg tablet 5 mg PO BID PRN (Reason: muscle spasm) Qty: 30 0RF ibuprofen 800 mg tablet 800 mg PO Q8H PRN (Reason: pain) 30 Days Qty: 90 2RF ketorolac 10 mg tablet 10 mg PO Q6H PRN (Reason: moderate pain (scale score 5-6)) 5 Days Qty: 20 0RF Rx Instructions: maximum total duration of 5 days from all oral, intranasal, or parenteral formulations levofloxacin 750 mg tablet 750 mg PO DAILY 10 Days Qty: 10 0RF ondansetron HCl 4 mg tablet 4 mg PO Q6H PRN (Reason: nausea) Qty: 30 2RF gabapentin 300 mg capsule 300 mg PO TID PRN (Reason: nerve pain) 10 Days Qty: 30 2RF cholecalciferol (vitamin D3) 1,250 mcg (50,000 unit) capsule 1,250 mcg PO WEEKLY Qty: 14 3RF Problem Reconciliation Problems Reviewed?: Yes Patient Discharge Instructions ACTIVITY: Continue current activity and Limited activity DIET: advance to your usual diet and regular diet Additional Instructions: Patient is to maintain dressing clean dry and intact. Ice (resume home polar pack) behind the left knee and elevate on two pillows. Non weight bearing to the left lower extremity with DME assistance (rolling knee scooter). Continue incentive spirometer q1h. Rx for Percocet 10/325, gabapentin, ketorolac, Levo, Zofran and Motrin 800mg. Vit D weekly. Follow up 11/15/[address] @[address] Murguia for dressing change. Patient Instructions: Arthrodesis of Foot and Ankle -- Open Surgery, DI for Surgical Site Infection Providers Primary Care Provider: Provider,Referral Admit Provider: Kevan Burgess Attending Provider: Federico Pearce
--- NOTE | 2023-11-10 12:38 | PC.NURSE ---
Pt states they don't have a PCP offered a list of ours, but patient requested to set something up in [place]
[2023-11-10] MEDS: OXYCODONE 7.5MG W/APAP 325MG TABLET 1 EACH PO (12:56)
--- OUTSIDE RECORDS SUMMARY | 2023-11-10 15:00 | XMS_ITS | Patient Health Record ---
Author Name Unknown Organization [facility] Address [address] [place] [address] Support Name Relationship Address Phone COREY RANDHAWA Guarantor Unknown Allergies Allergen (clinical drug ingredient) Drug/Non Drug Allergy documented on EMR Reaction Allergy Type Onset Date Status Vaccine product containing Influenza virus antigen (medicinal product) Influenza Vaccines Swelling of arm Drug Allergy 04/03/2018 Active Substance with sulfonamide structure and antibacterial mechanism of action (substance) Sulfa Antibiotics hives Drug Allergy Active Reason For Referral No Information Medications Medication SIG (Take, Route, Frequency, Duration) Notes Start Date End Date Status Amoxicillin-Pot Clavulanate 875-125 MG 1 tab(s) orally every 12 hours for 10 day(s) 01/04/2015 Not-Takin g ProAir HFA 108 (90 Base) MCG/ACT 2 puff(s) inhaled every 6 hours for 30 days Active Hjctpphgo-Tkzfskev-XX 30-2-10 MG/5ML 5 mL orally 4 times a day for 5 day(s) 09/16/2021 Active Immunizations Vaccine Route Administration Date Status Comme nts [id number] Fluzone Quad MDV (0.5m L Admin) 6mo & older Unknown 09/16/2021 Contraindications Problems Problem Type SNOMED Code ICD Code Onset Dates Problem Status W/U Status Risk Notes Problem 92816903 Exposure to second hand smoke (Z77.22) Active confirmed Problem 551200129 BMI 40.0-44.9, adult (Z68.41) Active confirmed Problem 89960838 Anorexia (R63.0) Active confirmed Plan Of Treatment No Information Insurance Providers Payer Name Payer Address Payer Phone Subscriber Number Group Number Insured Name Patient Relationship to Insured Coverage Start Date Coverage End Date [facility] [address] [place] [address] [id number] [place], SHOJ[place]LAN Self - patient is the insured Medical (General) History Medical History History ICD Code JAMAAL Surgical History Surgery Date(Month/Year) 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
--- NOTE | 2023-11-14 14:13 | CARE MANAGER ---
Called and spoke with patient's spouse. She stated he is doing well and has a f/u with Dr. Rodriguez tomorrow. No concerns voiced at time of call.
== END 2023-11-10 13:00 | disposition home or self-care (01) | DRG 908 ==
LOC: 2ND 16:42
PROVIDERS: Podiatrist; Admitting Provider Internal Medicine Adolescent Medicine; Visit Provider Internal Medicine
PROC: 0LBN0ZZ Excision of Right Lower Leg Tendon, Open Approach (ICD-10-PCS; principal; 2023-11-09 10:15)
DX: T81.31XA Disruption of external operation (surgical) wound, not elsewhere classified, initial encounter (principal); E66.01 Morbid (severe) obesity due to excess calories; Z68.41 Body mass index [BMI] 40.0-44.9, adult; M25.572 Pain in left ankle and joints of left foot; E55.9 Vitamin D deficiency, unspecified; Z79.899 Other long term (current) drug therapy; M76.62 Achilles tendinitis, left leg; R94.31 Abnormal electrocardiogram [ECG] [EKG]
CPT/HCPCS: 27691; 27654; 28002; 27685; 15271; 28120; 20700; C1602; 36415; 73610; 80053; 85007; 85025; 87070; 87205; 88304; 96374; 97162; 97166; J3490; C1713; G0378; J0692; J2405; J3370; Q4100